=== PATIENT | male | born 1940 | race Caucasian/White ===

== ENCOUNTER 2018-12-29 00:52 | Emergency (ER) | payer MEDICARE, OTHER ==
[~2018-12-29] VITALS: Ht 193 cm; Wt 142.7 kg
[~2018-12-29 00:52] MED LIST: NO HOME MEDS
--- NOTE | 2018-12-29 01:45 | NUR ---
Pt requests to be given time to urinate instead of straight cath and reprots he has to urinate frequently. at bedside. hr 52, otherwise vss. Denies any pain
[2018-12-29 02:02] LABS: BASOPHILS # (AUTO) 0.1 X10'3 (0-0.2); BASOPHILS % (AUTO) 0.7 % (0-1); EOSINOPHILS # (AUTO) 0.1 X10'3 (0-0.9); EOSINOPHILS % (AUTO) 1.7 % (0-6); HEMATOCRIT 38.9 % (42.0-52.0); HEMOGLOBIN 12.9 g/dl (14.0-17.9); LYMPHOCYTES # (AUTO) 1.1 X10'3 (1.1-4.8); LYMPHOCYTES % (AUTO) 14.7 % (21-51); MEAN CORPUSCULAR HEMOGLOBIN 28.6 PG (27.0-31.0); MEAN CORPUSCULAR HGB CONC 33.3 g/dL (33.0-36.5); MEAN CORPUSCULAR VOLUME 85.8 FL (78-98); MEAN PLATELET VOLUME 8.5 FL (7.4-10.4); MONOCYTES # (AUTO) 0.8 X10'3 (0-0.9); MONOCYTES % (AUTO) 11.6 % (2-12); NEUTROPHILS # (AUTO) 5.2 X10'3 (1.8-7.7); NEUTROPHILS % (AUTO) 71.3 % (42-75); PLATELET COUNT 213 X10'3 (140-440); RED BLOOD COUNT 4.53 X10'6 (4.70-6.10); RED CELL DISTRIBUTION WIDTH 15.1 % (11.5-14.5); WHITE BLOOD COUNT 7.3 X10'3 (4.5-11.0)
[2018-12-29 02:11] LABS: ALANINE AMINOTRANSFERASE 23 U/L (12-78); ALBUMIN 3.1 G/DL (3.4-5.0); ALBUMIN/GLOBULIN RATIO 0.9 (1.1-1.5); ALKALINE PHOSPHATASE 81 IU/L (46-116); ANION GAP 9 (8-16); ASPARTATE AMINO TRANSFERASE 16 U/L (10-37); BILIRUBIN,TOTAL 0.3 MG/DL (0.1-1.0); BLOOD UREA NITROGEN 27 MG/DL (7-18); BUN/CREATININE RATIO 24.5 (5.4-32.0); CALCIUM 8.7 MG/DL (8.5-10.1); CHLORIDE 107 MMOL/L (99-107); GLUCOSE 121 MG/DL (70-104); POTASSIUM 3.7 MMOL/L (3.5-5.1); SODIUM 139 MMOL/L (135-145); TOTAL CARBON DIOXIDE 23.4 MMOL/L (24-32); TOTAL PROTEIN 6.5 G/DL (6.4-8.2); eGFR 64 ML/MIN
[2018-12-29 02:31] LABS: MAGNESIUM 2.1 MG/DL (1.5-2.4)
[2018-12-29 02:41] LABS: CLARITY,URINE CLEAR (Clear); COLOR,URINE YELLOW (Yellow); GLUCOSE, URINE NEGATIVE (Neg); KETONES,URINE NEGATIVE (Neg); LEUKOCYTE ESTERASE ,URINE NEGATIVE (Neg); NITRITES, URINE NEGATIVE (Neg); OCCULT BLOOD,URINE NEGATIVE (Neg); PROTEIN,URINE NEGATIVE (Neg); UROBILINOGEN,URINE 0.2 E.U/dL (0.2-1.0)
[2018-12-29 02:42] LABS: UA COLLECTION TYPE CLN CATCH MIDSTREAM
[2018-12-29] MEDS ORDERED: normal saline 1000ML IV soln IVB ONE (03:55)
[2018-12-29 05:45] VITALS: BP 167/101
--- NOTE | 2018-12-29 06:02 | NUR ---
Dr. Hernández talking with Pt and his .
== END 2018-12-29 06:20 | disposition home or self-care (01) ==
LOC: ER 00:53
DX: R53.1 Weakness (principal); E86.0 Dehydration; I25.10 Atherosclerotic heart disease of native coronary artery without angina pectoris; G89.29 Other chronic pain; G62.9 Polyneuropathy, unspecified; Z95.5 Presence of coronary angioplasty implant and graft; Z98.890 Other specified postprocedural states
CPT/HCPCS: 36415; 71045; 80053; 81003; 83735; 83880; 84484; 85025; 85610; 93005; 96360; 99284; J7030

== ENCOUNTER 2019-02-26 09:58 | Outpatient (CLI) | payer MEDICARE, OTHER | END 2019-02-26 23:59 | disposition home or self-care (01) | LOC: CARD DIAG 09:58 | PROVIDERS: ATTEND Internal Medicine Cardiovascular Disease | DX: R42 Dizziness and giddiness (principal); Z87.891 Personal history of nicotine dependence | CPT/HCPCS: 93660 ==

== ENCOUNTER 2019-05-30 07:53 | Day surgery (SDC) | payer MEDICARE, OTHER ==
[~2019-05-30] VITALS: Ht 193 cm; Wt 150.6 kg
[2019-05-30] VITALS (22 sets, daily range): BP systolic 99–170; BP diastolic 42–86
[2019-05-30] MEDS ORDERED: normal saline 1000ml 1,000 ML IV PRN (08:25)
[2019-05-30] MEDS ORDERED: HYDR-4353 PO (08:45)
[2019-05-30] MEDS ORDERED: CYAN-51 PO (08:45)
[2019-05-30] MEDS ORDERED: FURO-150 PO (08:45)
[2019-05-30] MEDS ORDERED: ASCO500C15 PO (08:45)
[2019-05-30] MEDS ORDERED: ASPI-1264 PO (08:45)
[2019-05-30 09:23] LABS: ALBUMIN 3.8 G/DL (3.4-5.0); ANION GAP 6 (8-16); BASOPHILS % (AUTO) 0.5 % (0-1); BLOOD UREA NITROGEN 21 MG/DL (7-18); BUN/CREATININE RATIO 17.8 (5.4-32.0); CALCIUM 9.2 MG/DL (8.5-10.1); CHLORIDE 106 MMOL/L (99-107); CREATININE 1.18 MG/DL (0.60-1.10); EOSINOPHILS # (AUTO) 0.2 X10'3 (0-0.9); EOSINOPHILS % (AUTO) 2.3 % (0-6); GLUCOSE 96 MG/DL (70-104); HEMATOCRIT 41.1 % (42.0-52.0); HEMOGLOBIN 13.7 g/dl (14.0-17.9); LYMPHOCYTES # (AUTO) 1.1 X10'3 (1.1-4.8); LYMPHOCYTES % (AUTO) 16.5 % (21-51); MEAN CORPUSCULAR HEMOGLOBIN 28.9 PG (27.0-31.0); MEAN CORPUSCULAR HGB CONC 33.5 g/dL (33.0-36.5); MEAN CORPUSCULAR VOLUME 86.4 FL (78-98); MEAN PLATELET VOLUME 8.7 FL (7.4-10.4); MONOCYTES # (AUTO) 0.8 X10'3 (0-0.9); MONOCYTES % (AUTO) 11.9 % (2-12); NEUTROPHILS # (AUTO) 4.6 X10'3 (1.8-7.7); NEUTROPHILS % (AUTO) 68.8 % (42-75); PLATELET COUNT 235 X10'3 (140-440); POTASSIUM 4.2 MMOL/L (3.5-5.1); RED BLOOD COUNT 4.75 X10'6 (4.70-6.10); RED CELL DISTRIBUTION WIDTH 14.7 % (11.5-14.5); SODIUM 141 MMOL/L (135-145); TOTAL CARBON DIOXIDE 29.4 MMOL/L (24-32); WHITE BLOOD COUNT 6.7 X10'3 (4.5-11.0); eGFR 59 ML/MIN
[2019-05-30] MEDS ORDERED: fentaNYL/PF 50MCG/1 ML 2ML syringe IV PRN (11:05)
[2019-05-30] MEDS ORDERED: LIDOcaine 1% 30ml preserv. free vial SQ ONE (11:05)
[2019-05-30] MEDS ORDERED: midazolam 2 mg/2 ml injection IV PRN (11:05)
[2019-05-30] MEDS ORDERED: fentaNYL/PF 50MCG/1 ML 2ML syringe ONE ×2 (11:06→12:09)
[2019-05-30] MEDS ORDERED: midazolam 2 mg/2 ml injection ONE (11:06)
[2019-05-30] MEDS ORDERED: LIDOcaine 1%/PF 5ML 10 MG/ML VIAL ONE (12:00)
[2019-05-30] MEDS ORDERED: gelatin sponge, absorbable (Gelfoam 12-7MM) sponge TP ONE (12:01)
== END 2019-05-30 15:55 | disposition home or self-care (01) ==
LOC: SSTAY O 07:53
PROVIDERS: ATTEND Radiology Vascular & Interventional Radiology
DX: R91.8 Other nonspecific abnormal finding of lung field (principal); C85.12 Unspecified B-cell lymphoma, intrathoracic lymph nodes; Z79.899 Other long term (current) drug therapy; Z79.82 Long term (current) use of aspirin
CPT/HCPCS: 32405; 36415; 71045; 77012; 80048; 85025; 85610; 99152; 99153; J2250; J3010; J7030

== ENCOUNTER 2019-05-30 22:37 | Inpatient (IN) | payer MEDICARE, OTHER ==
[~2019-05-30] VITALS: Ht 193 cm; Wt 151.8 kg
[~2019-05-30 22:37] MED LIST changes: +ASCO500C15 PO; +ASPI-1264 PO; +CYAN-51 PO; +FURO-150 PO; +HYDR-4353 PO
[2019-05-30 23:18] LABS: BASOPHILS # (AUTO) 0.1 X10'3 (0-0.2); BASOPHILS % (AUTO) 0.3 % (0-1); EOSINOPHILS # (AUTO) 0.1 X10'3 (0-0.9); EOSINOPHILS % (AUTO) 0.6 % (0-6); HEMATOCRIT 37.9 % (42.0-52.0); HEMOGLOBIN 12.5 g/dl (14.0-17.9); LYMPHOCYTES # (AUTO) 1.5 X10'3 (1.1-4.8); LYMPHOCYTES % (AUTO) 9.9 % (21-51); MEAN CORPUSCULAR HEMOGLOBIN 28.7 PG (27.0-31.0); MEAN CORPUSCULAR HGB CONC 33.1 g/dL (33.0-36.5); MEAN CORPUSCULAR VOLUME 86.6 FL (78-98); MEAN PLATELET VOLUME 8.5 FL (7.4-10.4); MONOCYTES # (AUTO) 1.4 X10'3 (0-0.9); MONOCYTES % (AUTO) 8.9 % (2-12); NEUTROPHILS # (AUTO) 12.4 X10'3 (1.8-7.7); NEUTROPHILS % (AUTO) 80.3 % (42-75); PLATELET COUNT 238 X10'3 (140-440); RED BLOOD COUNT 4.37 X10'6 (4.70-6.10); RED CELL DISTRIBUTION WIDTH 14.9 % (11.5-14.5); WHITE BLOOD COUNT 15.5 X10'3 (4.5-11.0)
[2019-05-30 23:25] LABS: ALANINE AMINOTRANSFERASE 24 U/L (12-78); ALBUMIN 3.6 G/DL (3.4-5.0); ALKALINE PHOSPHATASE 97 IU/L (46-116); ANION GAP 8 (8-16); ASPARTATE AMINO TRANSFERASE 16 U/L (10-37); BILIRUBIN,TOTAL 0.3 MG/DL (0.1-1.0); BLOOD UREA NITROGEN 26 MG/DL (7-18); BUN/CREATININE RATIO 19.4 (5.4-32.0); CALCIUM 8.6 MG/DL (8.5-10.1); CHLORIDE 105 MMOL/L (99-107); CREATININE 1.34 MG/DL (0.60-1.10); GLUCOSE 126 MG/DL (70-104); POTASSIUM 3.9 MMOL/L (3.5-5.1); SODIUM 139 MMOL/L (135-145); TOTAL CARBON DIOXIDE 26.5 MMOL/L (24-32); TOTAL PROTEIN 7.2 G/DL (6.4-8.2); eGFR 51 ML/MIN
[2019-05-30 23:31] LABS: MAGNESIUM 2.1 MG/DL (1.5-2.4)
[2019-05-30] MEDS ORDERED: morphine 4 MG/ML inj SYRINge IV ONE (23:35)
[2019-05-30] MEDS ORDERED: ondansetron/PF 4mg/2ml inj IV ONE (23:35)
[2019-05-31] VITALS (9 sets, daily range): BP systolic 125–162; BP diastolic 51–92
[2019-05-31] MEDS ORDERED: morphine 4 MG/ML inj SYRINge IV ONE ×2 (01:15→23:25)
[2019-05-31] MEDS ORDERED: HYDROcodone/acetaminophen 5mg/325mg tablet PO PRN (01:20)
[2019-05-31] MEDS ORDERED: mag hydrox/Alum hydrox/simeth 30ml oral suspension PO PRN (01:20)
[2019-05-31] MEDS: normal saline 1000ml 1,000 ML IV SCH ×2 (01:20→14:40)
[2019-05-31] MEDS ORDERED: ondansetron/PF 4mg/2ml inj IV PRN (01:20)
[2019-05-31] MEDS ORDERED: morphine 2 MG/ML inj. syringe IV PRN ×2 (01:20)
[2019-05-31] MEDS ORDERED: magnesium hydroxide 30ml (MOM) UD suspension PO PRN (01:20)
[2019-05-31] MEDS ORDERED: acetaminophen 325mg tablet PO PRN ×2 (01:20)
[2019-05-31] MEDS ORDERED: LORazepam 2 mg/ml vial IV ONE ×3 (02:20→23:25)
[2019-05-31 02:38] LABS: CLARITY,URINE CLEAR (Clear); COLOR,URINE YELLOW (Yellow); GLUCOSE, URINE NEGATIVE (Neg); KETONES,URINE NEGATIVE (Neg); LEUKOCYTE ESTERASE ,URINE NEGATIVE (Neg); NITRITES, URINE NEGATIVE (Neg); OCCULT BLOOD,URINE NEGATIVE (Neg); PROTEIN,URINE TRACE mg/dl (Neg); UROBILINOGEN,URINE 0.2 E.U/dL (0.2-1.0)
[2019-05-31 02:40] LABS: UA COLLECTION TYPE URINAL
[2019-05-31 02:42] LABS: BACTERIA,URINE NONE SEEN /HPF (Neg); MUCUS STRANDS FEW /LPF (Neg); RBC,URINE 0-2 /HPF (0-2); SQUAMOUS EPITHELIAL CELL,UR NONE SEEN /LPF (FEW); WBC,URINE 0-4 /HPF (0-4)
--- NOTE | 2019-05-31 02:44 | NUR ---
per ed md lechuga request pt to stay in er for monitoring until ir available to place chest tube due to potential for serious decompensation and immediate need for chest tube.
--- NOTE | 2019-05-31 06:00 | NUR ---
Patient in room PCU 3014. I have received report from Kiera, ED RN and had the opportunity to ask questions and assume patient care. Informed that the current plan is for patient to stay in ED until they have ruled out need for emergent chest tube. Likely he will go to IR before coming to unit.
--- NOTE | 2019-05-31 08:00 | NUR ---
RN informed that patient had been on unit for an hour, nurse was never informed of patient's arrival and was unaware of the change in plan. vital signs obtained and VSS, patient moderately distressed with pain and reports shortness of breath. at bedside. Will get pain medication as prescribed and continue to monitor.
[2019-05-31] MEDS ORDERED: fentaNYL/PF 50MCG/1 ML 2ML syringe ONE ×2 (10:45→10:55)
--- NOTE | 2019-05-31 11:00 | NUR ---
Patient arrived back on unit following chest tube insertion. 400ml dark red blood in chest tube, chest tube set to suction at 20 per order, patient reports pain but otherwise VSS. Will continue to monitor.
--- NOTE | 2019-05-31 11:47 | NUR ---
PAGER ID: [phone] MESSAGE: LENCHO Rutherford, ext [phone], [phone], betito pt c/o new onset sharp/stabbing pain in his mid back post chest tube insertion
--- NOTE | 2019-05-31 12:16 | NUR ---
LENCHO Rutherford in communication with IR regarding patient status after procedure, pt restless in bed with c/o pain to middle of back, pleuritic in nature, without other identifiable causative factors. Chest tube output noted at 400ml from IR procedure when returned to floor and report handed off to attending RN, since then has had approx 125ml more output. PCU Staff at bedside. Vitals appropriate for patient and sats at 96-99 percent on 2LNC. Pt oriented, able to explain nature of pain and verbalized understanding of risk for falls and position of comfort by this RN. Sangeeta MUSA in communication via phone with MD Lerma and assisting patient at bedside. Anuja notified of patient condition, Anuja deferred ongoing orders to Florentin at this time regarding pain control. Charge nurse for unit at bedside. Angio team to follow as needed, RN aware and given information for contact in department. IR team to follow.
[2019-05-31] MEDS ORDERED: ketorolac tromethamine 15mg/ml inj. IM STA (12:19)
--- NOTE | 2019-05-31 12:19 | NUR ---
PAGER ID: [phone] MESSAGE: [id number] KITAJosé Luis LIZARRAGA @ BEDSIDE. CAN WE GIVE PT 15MG OF TORADOL?? XRAY BEING TAKEN. ESTELLA MORA [phone] Addendum: 05/31/19 at 1220 by Estella Salazar RN Amended: Links added.
[2019-05-31 13:25] LABS: BASOPHILS # (AUTO) 0.1 X10'3 (0-0.2); BASOPHILS % (AUTO) 0.5 % (0-1); EOSINOPHILS % (AUTO) 0.2 % (0-6); HEMATOCRIT 33.4 % (42.0-52.0); HEMOGLOBIN 11.2 g/dl (14.0-17.9); LYMPHOCYTES # (AUTO) 0.6 X10'3 (1.1-4.8); LYMPHOCYTES % (AUTO) 5.3 % (21-51); MEAN CORPUSCULAR HGB CONC 33.5 g/dL (33.0-36.5); MEAN CORPUSCULAR VOLUME 86.5 FL (78-98); MEAN PLATELET VOLUME 8.5 FL (7.4-10.4); MONOCYTES # (AUTO) 1.5 X10'3 (0-0.9); MONOCYTES % (AUTO) 13.1 % (2-12); NEUTROPHILS % (AUTO) 80.9 % (42-75); PLATELET COUNT 207 X10'3 (140-440); RED BLOOD COUNT 3.86 X10'6 (4.70-6.10); RED CELL DISTRIBUTION WIDTH 14.7 % (11.5-14.5); WHITE BLOOD COUNT 11.2 X10'3 (4.5-11.0)
[2019-05-31] MEDS: HYDROcodone/acetaminophen 10/325mg tab PO PRN (16:13)
--- NOTE | 2019-05-31 16:42 | NUR ---
PAGER ID: [phone] MESSAGE: LENCHO Rutherford, ext [phone], [phone], urine output this shift has only been 40mls, bladder scan showed only 170mls in bladder, patient has 3 + pitting edema in BLE and now arms are having increasing non-pitting edema.
[2019-05-31] MEDS ORDERED: furosemide 40mg/4ml inj IV ONE (16:45)
--- NOTE | 2019-05-31 17:30 | NUR ---
Patient jumped out of bed to go to bathroom with urinary urgency and in the process may have partiallly dislodged his pigtail catheter, increased drainage on dressing, placed xeroform and foam tape over site, attempted to call IR, but no answer, Dr. Lerma was paged, stat CXR ordered
--- NOTE | 2019-05-31 17:40 | NUR ---
promotional table spacer PAGER ID: [phone] MESSAGE: LENCHO Rutherford, ext [phone], [phone], betito, patient did not fall, he got up to bathroom and may have partially dislodged his pigtail catheter, foam tape and xeroform applied, tried to call IR but no answer
--- NOTE | 2019-05-31 18:26 | NUR ---
Problems reprioritized. Patient report given, questions answered & plan of care reviewed with LENCHO Gonzalez.
[2019-05-31] MEDS: furosemide 40mg/4ml inj IV SCH (19:28)
--- NOTE | 2019-05-31 21:00 | NUR ---
CHEST XR AND CLAMPED CHEST TUBE MD Talbert made aware about clamped chest tube and pending 1734 chest x-ray. Will continue to monitor.
[2019-06-01 02:00] VITALS: BP 139/60
--- NOTE | 2019-06-01 04:00 | NUR ---
COMPULSIVE AND CONFUSED BEHAVIOR Patient has been exceedingly impulsive, confused, and threatening to be combative on my shift. 2137 patient was given morphine was relieved from pain for a short while but had a lot of anxiety from needing to stand up and pee and having a lot of hesitancy with it; threatening to hit staff as well when help wasn't able to make him comfortable in bed or chair started soon after. Anxiety increased, MD Talbert notified, Ativan was given 2326; Patient was able to finally rest and occasionally demand to stand up to use the urinal or bedside commode. 0 MD Talbert was again notified when the patient began to escalate, Zyprexa and Morphine was given and Singh catheter was placed by order. Patient soon was able to be calm, relaxed and comfortable. Will continue to monitor.
[2019-06-01] MEDS ORDERED: OLANZapine **IM** 10 mg inj. IM ONE (04:05)
--- NOTE | 2019-06-01 05:00 | NUR ---
CHEST TUBE Tube reinforced, no output on my shift.
[2019-06-01 06:00] VITALS: BP 145/59
[2019-06-01 06:25] LABS: ALBUMIN 3.1 G/DL (3.4-5.0); ANION GAP 7 (8-16); BLOOD UREA NITROGEN 32 MG/DL (7-18); BUN/CREATININE RATIO 23.2 (5.4-32.0); CALCIUM 8.4 MG/DL (8.5-10.1); CHLORIDE 105 MMOL/L (99-107); CREATININE 1.38 MG/DL (0.60-1.10); GLUCOSE 121 MG/DL (70-104); POTASSIUM 3.9 MMOL/L (3.5-5.1); SODIUM 139 MMOL/L (135-145); TOTAL CARBON DIOXIDE 27.3 MMOL/L (24-32); eGFR 49 ML/MIN
[2019-06-01 06:27] LABS: BASOPHILS % (AUTO) 0.4 % (0-1); EOSINOPHILS # (AUTO) 0.1 X10'3 (0-0.9); EOSINOPHILS % (AUTO) 1.5 % (0-6); HEMATOCRIT 33.9 % (42.0-52.0); HEMOGLOBIN 11.5 g/dl (14.0-17.9); LYMPHOCYTES # (AUTO) 0.9 X10'3 (1.1-4.8); LYMPHOCYTES % (AUTO) 8.8 % (21-51); MEAN CORPUSCULAR HEMOGLOBIN 29.2 PG (27.0-31.0); MEAN CORPUSCULAR VOLUME 85.8 FL (78-98); MEAN PLATELET VOLUME 8.8 FL (7.4-10.4); MONOCYTES # (AUTO) 1.4 X10'3 (0-0.9); MONOCYTES % (AUTO) 13.6 % (2-12); NEUTROPHILS # (AUTO) 7.5 X10'3 (1.8-7.7); NEUTROPHILS % (AUTO) 75.7 % (42-75); PLATELET COUNT 208 X10'3 (140-440); RED BLOOD COUNT 3.95 X10'6 (4.70-6.10); RED CELL DISTRIBUTION WIDTH 14.5 % (11.5-14.5)
--- NOTE | 2019-06-01 06:34 | NUR ---
Problems reprioritized. Patient report given, questions answered & plan of care reviewed with Praful MUSA.
--- NOTE | 2019-06-01 07:02 | NUR ---
Patient got up from chair and lowered himself to one knee. Patient has done this before. MD was notified and dry house operator. Patient already has sitter. No injuries noted. Patient re-educated on why he can't get up with contact assistance.
[2019-06-01] MEDS: furosemide 40mg/4ml inj IV SCH ×2 (07:07→19:06)
[2019-06-01] MEDS ORDERED: LORazepam 2 mg/ml vial IV PRN (08:15)
[2019-06-01] MEDS ORDERED: haloperidol lactate 5mg/ml inj IM PRN (08:15)
[2019-06-01 11:00] VITALS: BP 119/54
--- NOTE | 2019-06-01 12:10 | NUR ---
ORDER TO REMOVE CT FROM DR DE LEÓN RECEIVED. CT NOT WITHIN THE PLURAL CAVITY ANY LONGER CONFIRMED BY XRAY. PT TOLERATED PROCEDURE WELL. CT PIG TAIL REMOVED . ENTRY SITE COVERED WITH VASELINE GAUZE, / AND RUBBER TAPE. PT NOW EATING LUNCH. FAMILY AT BEDSIDE. Addendum: 06/01/19 at 1245 by Estella Salazar RN Amended: Links added.
[2019-06-01 15:00] VITALS: BP 139/62
[2019-06-01 18:00] VITALS: BP 128/56
--- NOTE | 2019-06-01 18:00 | NUR ---
Patient in room PCU 3014. I have received report from Praful MUSA and had the opportunity to ask questions and assume patient care.
--- NOTE | 2019-06-01 18:10 | NUR ---
Problems reprioritized. Patient report given, questions answered & plan of care reviewed with LENCHO Gonzalez.
[2019-06-01] MEDS: HYDROcodone/acetaminophen 10/325mg tab PO PRN (19:06)
[2019-06-01 22:00] VITALS: BP 134/55
[2019-06-02] MEDS: HYDROcodone/acetaminophen 10/325mg tab PO PRN ×2 (00:30→21:21)
[2019-06-02 02:00] VITALS: BP 130/59
[2019-06-02 05:58] LABS: BASOPHILS % (AUTO) 0.3 % (0-1); EOSINOPHILS # (AUTO) 0.3 X10'3 (0-0.9); EOSINOPHILS % (AUTO) 3.2 % (0-6); HEMATOCRIT 35.1 % (42.0-52.0); LYMPHOCYTES # (AUTO) 1.2 X10'3 (1.1-4.8); LYMPHOCYTES % (AUTO) 12.6 % (21-51); MEAN CORPUSCULAR HEMOGLOBIN 29.2 PG (27.0-31.0); MEAN CORPUSCULAR HGB CONC 34.1 g/dL (33.0-36.5); MEAN CORPUSCULAR VOLUME 85.7 FL (78-98); MEAN PLATELET VOLUME 8.4 FL (7.4-10.4); MONOCYTES # (AUTO) 1.4 X10'3 (0-0.9); NEUTROPHILS # (AUTO) 6.3 X10'3 (1.8-7.7); NEUTROPHILS % (AUTO) 68.9 % (42-75); PLATELET COUNT 221 X10'3 (140-440); RED BLOOD COUNT 4.09 X10'6 (4.70-6.10); RED CELL DISTRIBUTION WIDTH 14.3 % (11.5-14.5); WHITE BLOOD COUNT 9.2 X10'3 (4.5-11.0)
[2019-06-02 06:00] VITALS: BP 151/67
[2019-06-02 06:20] LABS: ANION GAP 8 (8-16); BLOOD UREA NITROGEN 34 MG/DL (7-18); CALCIUM 8.4 MG/DL (8.5-10.1); CHLORIDE 102 MMOL/L (99-107); CREATININE 1.36 MG/DL (0.60-1.10); GLUCOSE 111 MG/DL (70-104); POTASSIUM 3.5 MMOL/L (3.5-5.1); SODIUM 137 MMOL/L (135-145); TOTAL CARBON DIOXIDE 26.8 MMOL/L (24-32); eGFR 50 ML/MIN
--- NOTE | 2019-06-02 06:57 | NUR ---
Problems reprioritized. Patient report given, questions answered & plan of care reviewed with Praful MUSA.
[2019-06-02] MEDS: furosemide 40mg/4ml inj IV SCH ×2 (08:04→19:04)
[2019-06-02 11:00] VITALS: BP 143/67
[2019-06-02 12:43] LABS: CLARITY,URINE SLIGHTLY CLOUDY (Clear); COLOR,URINE YELLOW (Yellow); GLUCOSE, URINE NEGATIVE (Neg); KETONES,URINE NEGATIVE (Neg); LEUKOCYTE ESTERASE ,URINE SMALL (Neg); NITRITES, URINE NEGATIVE (Neg); OCCULT BLOOD,URINE LARGE (Neg); PROTEIN,URINE 100 mg/dl (Neg); UROBILINOGEN,URINE 0.2 E.U/dL (0.2-1.0)
[2019-06-02 12:45] LABS: UA COLLECTION TYPE FOLEY CATH
--- NOTE | 2019-06-02 12:45 | NUR ---
PAGER ID: [phone] MESSAGE: [id number] Jean-Pierre Lundy: Walked 300 with FWW with about 6 stops. May need home PT and/or walker with seat. Gait is slightly weak and is at some risk for a fall I believe. UA pending per Dr Cota. I'll HAMZAH shi. LENCHO Basilio Ext [phone]
[2019-06-02 12:59] LABS: RBC,URINE TNTC /HPF (0-2); SQUAMOUS EPITHELIAL CELL,UR NONE SEEN /LPF (FEW)
[2019-06-02 13:01] LABS: WBC,URINE 20-30 /HPF (0-4)
[2019-06-02 13:02] LABS: BACTERIA,URINE 1+ /HPF (Neg)
[2019-06-02 15:00] VITALS: BP 141/59
[2019-06-02] MEDS: CefTRIAXone 2gm/D5W 50ml 50 ML IV SCH (15:32)
--- NOTE | 2019-06-02 18:15 | NUR ---
Problems reprioritized. Patient report given, questions answered & plan of care reviewed with LENCHO Gonzalez.
--- NOTE | 2019-06-02 18:51 | NUR ---
PAGER ID: [phone] MESSAGE: [phone] Jean-Pierre Lundy: Singh catheter discontinued, patient has prostate issues, patient stated "took some kind of medication at home and stopped taking it because it made him feel funny". Would you like to order something? antoinette MUSA 0206
[2019-06-02 19:00] VITALS: BP 130/54
[2019-06-02] MEDS ORDERED: tamsulosin 0.4mg capsule PO SCH (21:00)
[2019-06-02] MEDS: finasteride 5mg tablet PO SCH (21:20)
[2019-06-02 23:00] VITALS: BP 124/59
[2019-06-03] MEDS: HYDROcodone/acetaminophen 10/325mg tab PO PRN (01:20)
--- NOTE | 2019-06-03 01:56 | NUR ---
Patient in room U 3014. I have received report from Praful MUSA and had the opportunity to ask questions and assume patient care. Addendum: 06/03/19 at 0157 by Lisa Greer RN Time 06/02/19 1800
[2019-06-03 03:00] VITALS: BP 149/64
[2019-06-03 05:35] LABS: BASOPHILS % (AUTO) 0.5 % (0-1); EOSINOPHILS # (AUTO) 0.3 X10'3 (0-0.9); EOSINOPHILS % (AUTO) 2.8 % (0-6); HEMATOCRIT 35.5 % (42.0-52.0); HEMOGLOBIN 12.2 g/dl (14.0-17.9); LYMPHOCYTES # (AUTO) 1.2 X10'3 (1.1-4.8); LYMPHOCYTES % (AUTO) 12.3 % (21-51); MEAN CORPUSCULAR HEMOGLOBIN 29.3 PG (27.0-31.0); MEAN CORPUSCULAR HGB CONC 34.3 g/dL (33.0-36.5); MEAN CORPUSCULAR VOLUME 85.2 FL (78-98); MEAN PLATELET VOLUME 8.7 FL (7.4-10.4); MONOCYTES # (AUTO) 1.3 X10'3 (0-0.9); MONOCYTES % (AUTO) 13.8 % (2-12); NEUTROPHILS # (AUTO) 6.7 X10'3 (1.8-7.7); NEUTROPHILS % (AUTO) 70.6 % (42-75); PLATELET COUNT 223 X10'3 (140-440); RED BLOOD COUNT 4.17 X10'6 (4.70-6.10); WHITE BLOOD COUNT 9.4 X10'3 (4.5-11.0)
[2019-06-03 05:44] LABS: ANION GAP 11 (8-16); BLOOD UREA NITROGEN 35 MG/DL (7-18); BUN/CREATININE RATIO 26.9 (5.4-32.0); CALCIUM 8.6 MG/DL (8.5-10.1); CHLORIDE 100 MMOL/L (99-107); GLUCOSE 119 MG/DL (70-104); POTASSIUM 3.3 MMOL/L (3.5-5.1); SODIUM 136 MMOL/L (135-145); TOTAL CARBON DIOXIDE 24.8 MMOL/L (24-32); eGFR 53 ML/MIN
--- NOTE | 2019-06-03 06:16 | NUR ---
Problems reprioritized. Patient report given, questions answered & plan of care reviewed with Marilee MUSA and Kiera MUSA.
--- NOTE | 2019-06-03 06:27 | NUR ---
Patient in room PCU 3014. I have received report from Lisa MUSA and had the opportunity to ask questions and assume patient care. Patient asleep in chair. Sitter bedside.
--- NOTE | 2019-06-03 06:27 | NUR ---
Patient in room U 3014. I have received report from LENCHO Treadwell and had the opportunity to ask questions and assume patient care. Patient sleeping comfortably in chair. Sitter present.
[2019-06-03 07:00] VITALS: BP 153/74
[2019-06-03] MEDS: furosemide 40mg/4ml inj IV SCH (08:08)
[2019-06-03] MEDS: CefTRIAXone 2gm/D5W 50ml 50 ML IV SCH (08:09)
[2019-06-03] MEDS: finasteride 5mg tablet PO SCH (08:10)
[2019-06-03 11:00] VITALS: BP 138/62
[2019-06-03 15:00] VITALS: BP 130/59
--- NOTE | 2019-06-03 15:17 | NUR ---
Paged Dr. Luis regarding discharge plans. PAGER ID: [phone] MESSAGE: Jean-Pierre Lundy. Rm. [phone]. Is patient discharging today? Patient is inquiring about status. Thank you. Kiera MUSA x [phone]
[2019-06-03] MEDS ORDERED: FINA5TAB11 PO (15:25)
[2019-06-03] MEDS ORDERED: FURO-150 PO (15:25)
[2019-06-03] MEDS ORDERED: CEFD300C3 PO (15:25)
--- NOTE | 2019-06-03 16:15 | NUR ---
Patient is stable for discharge per MD orders. All discharge instructions reviewed with patient and all questions answered. New prescriptions call into [facility] on [facility]. Patient will follow up with primary care provider. PIV discontinued. quality assurance monitor chassis discontinued. Belongings collected and sent with patient. Patient leaving by private vehicle. Wheeled to lobby.
--- NOTE | 2019-06-03 16:38 | NUR ---
[place] Medication Administration: For this medication-pass time frame, all medication were reviewed, dispensed, administered and documented per hospital policy by LENCHO Qureshi. Orientee documentation: I have reviewed and agree with all interventions, assessments performed and documented by LENCHO Qureshi.
== END 2019-06-03 16:15 | disposition home health service (06) | DRG 199 ==
LOC: ER 22:38 → ED HOLD 05-31 01:20 → PCU 3S 05-31 07:00
PROVIDERS: ADMIT Hospitalist; ATTEND Family Medicine
PROC: 0W9B30Z Drainage of Left Pleural Cavity with Drainage Device, Percutaneous Approach (ICD-10-PCS; principal; 2019-05-31)
DX: J95.811 Postprocedural pneumothorax (principal); J96.01 Acute respiratory failure with hypoxia; J94.2 Hemothorax; J98.11 Atelectasis; N39.0 Urinary tract infection, site not specified; Z68.41 Body mass index [BMI] 40.0-44.9, adult; E66.01 Morbid (severe) obesity due to excess calories; I25.10 Atherosclerotic heart disease of native coronary artery without angina pectoris; I11.0 Hypertensive heart disease with heart failure; I50.9 Heart failure, unspecified; N40.1 Benign prostatic hyperplasia with lower urinary tract symptoms; R33.8 Other retention of urine; G47.33 Obstructive sleep apnea (adult) (pediatric); G89.29 Other chronic pain; Z85.72 Personal history of non-Hodgkin lymphomas; Z95.5 Presence of coronary angioplasty implant and graft
CPT/HCPCS: 32557; 36415; 71045; 71046; 71250; 77012; 80048; 80053; 81001; 83735; 83880; 84484; 85025; 85610; 87081; 87088; 88305; 88341; 88342; 88360; 93005; 96374; 96375; 97116; 97161; 97530; 99285; G0378; J0696; J1885; J1940; J2060; J2270; J2405; J3010; J3490; J7030

== ENCOUNTER 2021-07-07 04:18 | Inpatient (IN) | payer MEDICARE ==
[~2021-07-07] VITALS: Ht 193 cm; Wt 127.0 kg
[2021-07-07] VITALS (8 sets, daily range): BP systolic 153–187; BP diastolic 62–86
[~2021-07-07 04:18] MED LIST changes: -ASCO500C15 PO; +ASCO500C18 PO; +FINA5TAB11 PO; -NO HOME MEDS
[2021-07-07 05:30] LABS: EOSINOPHILS % (AUTO) 0.3 % (0-6); HEMOGLOBIN 12.9 g/dl (14.0-17.9); LYMPHOCYTES # (AUTO) 0.7 X10'3 (1.1-4.8); MONOCYTES # (AUTO) 1.1 X10'3 (0-0.9); NEUTROPHILS # (AUTO) 6.5 X10'3 (1.8-7.7); WHITE BLOOD COUNT 8.4 X10'3 (4.5-11.0)
[2021-07-07 05:31] LABS: BASOPHILS % (AUTO) 0.4 % (0-1); HEMATOCRIT 38.6 % (42.0-52.0); LYMPHOCYTES % (AUTO) 8.4 % (21-51); MEAN CORPUSCULAR HEMOGLOBIN 27.7 PG (27.0-31.0); MEAN CORPUSCULAR HGB CONC 33.6 g/dL (33.0-36.5); MEAN CORPUSCULAR VOLUME 82.4 FL (78-98); MEAN PLATELET VOLUME 8.5 FL (7.4-10.4); MONOCYTES % (AUTO) 13.3 % (2-12); NEUTROPHILS % (AUTO) 77.6 % (42-75); PLATELET COUNT 195 X10'3 (140-440); RED BLOOD COUNT 4.68 X10'6 (4.70-6.10); RED CELL DISTRIBUTION WIDTH 15.2 % (11.5-14.5)
[2021-07-07 05:43] LABS: ALANINE AMINOTRANSFERASE 25 U/L (12-78); ALBUMIN 3.6 G/DL (3.4-5.0); ALBUMIN/GLOBULIN RATIO 0.9 (1.1-1.5); ALKALINE PHOSPHATASE 87 IU/L (46-116); ANION GAP 10 (8-16); ASPARTATE AMINO TRANSFERASE 29 U/L (10-37); BILIRUBIN,TOTAL 0.6 MG/DL (0.1-1.0); BLOOD UREA NITROGEN 30 MG/DL (7-18); BUN/CREATININE RATIO 22.2 (5.4-32.0); CALCIUM 9.1 MG/DL (8.5-10.1); CHLORIDE 103 MMOL/L (99-107); CREATININE 1.35 MG/DL (0.60-1.10); GLUCOSE 121 MG/DL (70-104); LIPASE 64 U/L (73-393); POTASSIUM 3.2 MMOL/L (3.5-5.1); SODIUM 142 MMOL/L (135-145); TOTAL CARBON DIOXIDE 29.5 MMOL/L (24-32); TOTAL PROTEIN 7.5 G/DL (6.4-8.2); eGFR 50 ML/MIN
[2021-07-07 06:26] LABS: CLARITY,URINE CLEAR (Clear); COLOR,URINE YELLOW (Yellow); GLUCOSE, URINE NEGATIVE (Neg); KETONES,URINE 15 mg/dl (Neg); LEUKOCYTE ESTERASE ,URINE NEGATIVE (Neg); NITRITES, URINE NEGATIVE (Neg); OCCULT BLOOD,URINE MODERATE (Neg); PH,URINE 5.5 (4.8-8.0); PROTEIN,URINE 100 mg/dl (Neg); UROBILINOGEN,URINE 0.2 E.U/dL (0.2-1.0)
[2021-07-07 06:36] LABS: UA COLLECTION TYPE NON-SPECIFIED
[2021-07-07 06:39] LABS: BACTERIA,URINE 1+ /HPF (Neg); MUCUS STRANDS MANY /LPF (Neg); SQUAMOUS EPITHELIAL CELL,UR MODERATE /LPF (FEW)
[2021-07-07] MEDS ORDERED: magnesium 2GM in 50ml NS 50 ML IV ONE (07:35)
[2021-07-07] MEDS ORDERED: potassium 10mEq/100ml NS w/LIDOcaine (10mg/bag) IV ONE (07:35)
[2021-07-07] MEDS ORDERED: potassium Cl 10 mEq/100mL bag IV ONE (07:45)
[2021-07-07 07:52] LABS: MAGNESIUM 2.3 MG/DL (1.5-2.4)
[2021-07-07] MEDS ORDERED: acetaminophen 325mg tablet PO PRN (08:05)
[2021-07-07] MEDS ORDERED: magnesium hydroxide 30ml (MOM) UD suspension PO PRN (08:05)
[2021-07-07] MEDS ORDERED: metoclopramide 5 mg/ml inj IV PRN (08:05)
[2021-07-07] MEDS ORDERED: ondansetron/PF 4mg/2ml inj IV PRN (08:05)
[2021-07-07] MEDS ORDERED: mag hydrox/Alum hydrox/simeth 30ml oral suspension PO PRN (08:05)
[2021-07-07] MEDS: dextrose 5%-1/2 normal saline 1,000 ML IV SCH ×2 (08:59→18:05)
--- NOTE | 2021-07-07 11:01 | NUR ---
PATIENT ARRIVED TO THE UNIT AAOX4 , NO SIGNS OF DISTRESS, NO COMPLAINTS OF PAIN. IV PATENT, VITALS TAKEN. PATIENT RESTING COMFORTABLY AND ORIENTED TO ROOM. BED ALARM ON AND CALL LIGHT GIVEN. BELONGINGS WITHIN REACH.
[2021-07-07] MEDS ORDERED: CARI-75 PO (11:39)
[2021-07-07] MEDS ORDERED: FLO0.4C PO (11:39)
--- NOTE | 2021-07-07 13:42 | NUR ---
Patients daughter Melony called, patient gave the ok to give her information. Melony's phone number is in the SBAR. Melony states that her father and mother have a hard time understanding the plan for treatment and are unable to let her know what is going on. Melony would like to speak with the surgeon prior to patient going to surgery.
[2021-07-07] MEDS ORDERED: fentaNYL/PF 50MCG/1 ML 2ML syringe ONE (16:48)
[2021-07-07] MEDS ORDERED: LIDOcaine Viscous 15ml cup ONE (16:48)
[2021-07-07] MEDS ORDERED: MIDAZolam 1 MG/ML 5ML VIAL ONE (16:48)
[2021-07-07] MEDS: CefTRIAXone/D5W-Rocephin 1gm 50 ML IV SCH (20:29)
[2021-07-07] MEDS: azithromycin/NS 500mg/250ml 250 ML IV SCH (21:06)
[2021-07-07] MEDS: docusate sod 100mg capsule PO SCH (21:10)
--- NOTE | 2021-07-07 21:12 | NUR ---
No order to continue troponins, order cancelled.
[2021-07-08 00:36] VITALS: BP 175/64
[2021-07-08] MEDS: acetaminophen 325mg tablet PO PRN (00:45)
[2021-07-08] MEDS ORDERED: LORazepam 2 mg/ml vial IV ONE (02:00)
[2021-07-08] MEDS: dextrose 5%-1/2 normal saline 1,000 ML IV SCH ×2 (04:05→09:42)
[2021-07-08 06:12] LABS: BASOPHILS % (AUTO) 0.3 % (0-1); EOSINOPHILS % (AUTO) 0 % (0-6); HEMOGLOBIN 11.7 g/dl (14.0-17.9); LYMPHOCYTES # (AUTO) 0.7 X10'3 (1.1-4.8); LYMPHOCYTES % (AUTO) 8.6 % (21-51); MEAN CORPUSCULAR HEMOGLOBIN 27.6 PG (27.0-31.0); MEAN CORPUSCULAR HGB CONC 33.5 g/dL (33.0-36.5); MEAN CORPUSCULAR VOLUME 82.3 FL (78-98); MEAN PLATELET VOLUME 8.8 FL (7.4-10.4); MONOCYTES % (AUTO) 13.1 % (2-12); PLATELET COUNT 170 X10'3 (140-440); RED BLOOD COUNT 4.25 X10'6 (4.70-6.10); RED CELL DISTRIBUTION WIDTH 15.7 % (11.5-14.5); WHITE BLOOD COUNT 7.7 X10'3 (4.5-11.0)
[2021-07-08 06:28] LABS: ALBUMIN 2.8 G/DL (3.4-5.0); ANION GAP 10 (8-16); BLOOD UREA NITROGEN 22 MG/DL (7-18); BUN/CREATININE RATIO 21.2 (5.4-32.0); CALCIUM 8.2 MG/DL (8.5-10.1); CHLORIDE 104 MMOL/L (99-107); CREATININE 1.04 MG/DL (0.60-1.10); GLUCOSE 135 MG/DL (70-104); POTASSIUM 3.2 MMOL/L (3.5-5.1); SODIUM 136 MMOL/L (135-145); TOTAL CARBON DIOXIDE 21.6 MMOL/L (24-32); eGFR 68 ML/MIN
[2021-07-08 07:00] VITALS: BP 165/95
[2021-07-08] MEDS: docusate sod 100mg capsule PO SCH ×2 (09:42→20:00)
[2021-07-08] MEDS: CefTRIAXone/D5W-Rocephin 1gm 50 ML IV SCH (09:43)
[2021-07-08 11:00] VITALS: BP 187/76
[2021-07-08 12:00] VITALS: BP 142/65
[2021-07-08] MEDS: azithromycin/NS 500mg/250ml 250 ML IV SCH (12:39)
[2021-07-08] MEDS: morphine 2 MG/ML inj. syringe IV PRN ×2 (12:56→22:07)
--- NOTE | 2021-07-08 18:00 | NUR ---
CALLED DR AUGUSTINE ON HIS CELL. LEFT A MESSAGE ABOUT BEING AT BED SIDE AND WANTING TO GET INFO FROM SURGEON. WAITED UNTIL 1830. THERE IS A NOTE TO CALL DAUGHTER WITH ALL DETAILS SO SHE IS ABLE TO TALK TO MOM AND EXPLAIN. CHARGE IS AWARE, RUTHIE.
--- NOTE | 2021-07-08 18:08 | NUR ---
Problems reprioritized. Patient report given, questions answered & plan of care reviewed with ANUP MUSA TRAVELER.
--- NOTE | 2021-07-08 18:30 | NUR ---
Pt in bed resting with sitter and at bed side. Pt daughter called at 1930 and was updated on pt's status.She requests to be updated daily.
[2021-07-08 20:00] VITALS: BP 188/83
--- NOTE | 2021-07-08 21:30 | NUR ---
Pt's IV (Extended) in left upper arm infiltrated and was discontinued.Charhouse Worker and another administrative staff supervisor attempted starting a new one but was unsuccessful.BELLSTAND ATTENDANT requested to help with IV insertion.
[2021-07-08 21:37] VITALS: BP 169/82
[2021-07-08] MEDS ORDERED: magnesium 2GM in 50ml NS 50 ML IV PRN (22:15)
[2021-07-08] MEDS ORDERED: magnesium 4gm in 100ml NS 100 ML IV PRN (22:15)
[2021-07-09] VITALS: BP 161/86
[2021-07-09] MEDS: dextrose 5%-1/2 normal saline 1,000 ML IV SCH ×3 (00:05→20:05)
[2021-07-09] MEDS: HYDROcodone/acetaminophen 10/325mg tab PO PRN (01:48)
[2021-07-09] MEDS: potassium CL 10mEq/100ml bag 100 ML IV PRN ×5 (02:57→17:42)
[2021-07-09 06:08] LABS: BASOPHILS % (AUTO) 0.3 % (0-1); EOSINOPHILS % (AUTO) 0.1 % (0-6); HEMATOCRIT 34.5 % (42.0-52.0); HEMOGLOBIN 11.6 g/dl (14.0-17.9); LYMPHOCYTES # (AUTO) 0.4 X10'3 (1.1-4.8); LYMPHOCYTES % (AUTO) 6.5 % (21-51); MEAN CORPUSCULAR HEMOGLOBIN 27.5 PG (27.0-31.0); MEAN CORPUSCULAR HGB CONC 33.5 g/dL (33.0-36.5); MEAN CORPUSCULAR VOLUME 82.1 FL (78-98); MEAN PLATELET VOLUME 8.8 FL (7.4-10.4); MONOCYTES # (AUTO) 0.8 X10'3 (0-0.9); MONOCYTES % (AUTO) 11.6 % (2-12); NEUTROPHILS # (AUTO) 5.4 X10'3 (1.8-7.7); NEUTROPHILS % (AUTO) 81.5 % (42-75); PLATELET COUNT 151 X10'3 (140-440); RED CELL DISTRIBUTION WIDTH 15.3 % (11.5-14.5); WHITE BLOOD COUNT 6.6 X10'3 (4.5-11.0)
[2021-07-09 06:20] LABS: ALBUMIN 2.5 G/DL (3.4-5.0); ANION GAP 9 (8-16); BLOOD UREA NITROGEN 20 MG/DL (7-18); BUN/CREATININE RATIO 18.5 (5.4-32.0); CALCIUM 8.1 MG/DL (8.5-10.1); CHLORIDE 108 MMOL/L (99-107); CREATININE 1.08 MG/DL (0.60-1.10); GLUCOSE 126 MG/DL (70-104); MAGNESIUM 2.1 MG/DL (1.5-2.4); POTASSIUM 3.2 MMOL/L (3.5-5.1); SODIUM 140 MMOL/L (135-145); TOTAL CARBON DIOXIDE 22.7 MMOL/L (24-32); eGFR 65 ML/MIN
--- NOTE | 2021-07-09 06:36 | NUR ---
Pt continues to need a 1:1 sitter for safety . Report given to incoming LENCHO Vela.
[2021-07-09 08:00] VITALS: BP 131/80
[2021-07-09] MEDS: docusate sod 100mg capsule PO SCH ×2 (08:00→20:00)
[2021-07-09] MEDS: CefTRIAXone/D5W-Rocephin 1gm 50 ML IV SCH (08:11)
[2021-07-09] MEDS: K and/or MAG REPLACEMENT MC SCH ×2 (08:12→20:00)
[2021-07-09] MEDS: azithromycin/NS 500mg/250ml 250 ML IV SCH (09:32)
[2021-07-09 11:00] VITALS: BP 189/81
[2021-07-09 13:41] VITALS: BP 156/71
[2021-07-09] MEDS: morphine 2 MG/ML inj. syringe IV PRN (16:40)
--- NOTE | 2021-07-09 18:12 | NUR ---
Gave report to Latonya MUSA.
--- NOTE | 2021-07-09 18:42 | NUR ---
Report received from Mirian MUSA
[2021-07-09 20:00] VITALS: BP 161/95
[2021-07-09] MEDS: diatr meglu/diatrizoate 30ml oral sol.-(3 dose) bottle PO SCH (20:50)
[2021-07-10] VITALS: BP 170/89
[2021-07-10] MEDS: acetaminophen 325mg tablet PO PRN (00:14)
[2021-07-10] MEDS: dextrose 5%-1/2 normal saline 1,000 ML IV SCH ×2 (00:20→12:53)
[2021-07-10] MEDS: morphine 2 MG/ML inj. syringe IV PRN ×2 (01:36→08:33)
[2021-07-10 05:46] VITALS: BP 139/67
[2021-07-10 06:06] LABS: BASOPHILS % (AUTO) 0.3 % (0-1); EOSINOPHILS % (AUTO) 0.2 % (0-6); HEMATOCRIT 35.3 % (42.0-52.0); HEMOGLOBIN 11.8 g/dl (14.0-17.9); LYMPHOCYTES # (AUTO) 0.3 X10'3 (1.1-4.8); LYMPHOCYTES % (AUTO) 5.1 % (21-51); MEAN CORPUSCULAR HEMOGLOBIN 27.3 PG (27.0-31.0); MEAN CORPUSCULAR HGB CONC 33.3 g/dL (33.0-36.5); MEAN CORPUSCULAR VOLUME 81.9 FL (78-98); MEAN PLATELET VOLUME 9.3 FL (7.4-10.4); MONOCYTES # (AUTO) 0.5 X10'3 (0-0.9); NEUTROPHILS # (AUTO) 5.7 X10'3 (1.8-7.7); NEUTROPHILS % (AUTO) 86.4 % (42-75); PLATELET COUNT 145 X10'3 (140-440); RED BLOOD COUNT 4.31 X10'6 (4.70-6.10); WHITE BLOOD COUNT 6.6 X10'3 (4.5-11.0)
[2021-07-10 06:30] VITALS: BP 143/73
--- NOTE | 2021-07-10 06:40 | NUR ---
Patient in room HECTOR 358. I have received report from LENCHO Hanks and had the opportunity to ask questions and assume patient care.
[2021-07-10 06:46] LABS: ALBUMIN 2.5 G/DL (3.4-5.0); ANION GAP 10 (8-16); BLOOD UREA NITROGEN 17 MG/DL (7-18); BUN/CREATININE RATIO 16.3 (5.4-32.0); CALCIUM 7.9 MG/DL (8.5-10.1); CHLORIDE 106 MMOL/L (99-107); CREATININE 1.04 MG/DL (0.60-1.10); GLUCOSE 138 MG/DL (70-104); MAGNESIUM 1.9 MG/DL (1.5-2.4); POTASSIUM 3.4 MMOL/L (3.5-5.1); SODIUM 140 MMOL/L (135-145); TOTAL CARBON DIOXIDE 23.6 MMOL/L (24-32); eGFR 68 ML/MIN
[2021-07-10] MEDS: docusate sod 100mg capsule PO SCH ×2 (08:00→20:00)
[2021-07-10] MEDS: K and/or MAG REPLACEMENT MC SCH ×2 (08:15→20:00)
[2021-07-10] MEDS: CefTRIAXone/D5W-Rocephin 1gm 50 ML IV SCH (08:32)
[2021-07-10] MEDS: potassium CL 10mEq/100ml bag 100 ML IV PRN ×5 (08:32→15:29)
[2021-07-10] MEDS: diatr meglu/diatrizoate 30ml oral sol.-(3 dose) bottle PO SCH ×2 (08:35→11:18)
[2021-07-10] MEDS: azithromycin/NS 500mg/250ml 250 ML IV SCH (09:40)
[2021-07-10] MEDS: LORazepam 2 mg/ml vial IV PRN ×2 (10:48→23:52)
[2021-07-10 11:00] VITALS: BP 123/81
[2021-07-10] MEDS ORDERED: aminophylline 250mg/10ml inj. IV PRN (14:05)
[2021-07-10] MEDS ORDERED: metoprolol tartrate 1mg/ml inj IV PRN (14:05)
[2021-07-10] MEDS ORDERED: regadenoson 0.4mg/5ml syringe IV PRN (14:05)
[2021-07-10] MEDS ORDERED: nitroGLYCERIN 0.4mg SUBLingual tab SL PRN (14:05)
[2021-07-10] MEDS ORDERED: bisacodyl 10mg suppository rectal RC PRN (16:35)
[2021-07-10 18:00] VITALS: BP 142/90
--- NOTE | 2021-07-10 18:40 | NUR ---
Problems reprioritized. Patient report given, questions answered & plan of care reviewed with LENCHO Camarillo.
--- NOTE | 2021-07-10 19:22 | NUR ---
Patient in room HECTOR 350. I have received report from LENCHO Sandoval and had the opportunity to ask questions and assume patient care.
[2021-07-11] VITALS (8 sets, daily range): BP systolic 135–160; BP diastolic 74–102
[2021-07-11] MEDS: dextrose 5%-1/2 normal saline 1,000 ML IV SCH ×3 (02:13→22:05)
--- NOTE | 2021-07-11 06:52 | NUR ---
Problems reprioritized. Patient report given, questions answered & plan of care reviewed with LENCHO Sandoval.
[2021-07-11 06:55] LABS: BASOPHILS % (AUTO) 0.3 % (0-1); EOSINOPHILS % (AUTO) 0 % (0-6); HEMOGLOBIN 11.8 g/dl (14.0-17.9); LYMPHOCYTES # (AUTO) 0.4 X10'3 (1.1-4.8); LYMPHOCYTES % (AUTO) 6.6 % (21-51); MEAN CORPUSCULAR HEMOGLOBIN 27.1 PG (27.0-31.0); MEAN CORPUSCULAR HGB CONC 32.8 g/dL (33.0-36.5); MEAN CORPUSCULAR VOLUME 82.5 FL (78-98); MEAN PLATELET VOLUME 9.8 FL (7.4-10.4); MONOCYTES # (AUTO) 0.5 X10'3 (0-0.9); MONOCYTES % (AUTO) 8.4 % (2-12); NEUTROPHILS # (AUTO) 4.7 X10'3 (1.8-7.7); NEUTROPHILS % (AUTO) 84.7 % (42-75); PLATELET COUNT 152 X10'3 (140-440); RED BLOOD COUNT 4.36 X10'6 (4.70-6.10); RED CELL DISTRIBUTION WIDTH 15.3 % (11.5-14.5); WHITE BLOOD COUNT 5.6 X10'3 (4.5-11.0)
[2021-07-11 06:56] LABS: ALBUMIN 2.2 G/DL (3.4-5.0); ANION GAP 11 (8-16); BLOOD UREA NITROGEN 15 MG/DL (7-18); BUN/CREATININE RATIO 15.3 (5.4-32.0); CHLORIDE 106 MMOL/L (99-107); CREATININE 0.98 MG/DL (0.60-1.10); GLUCOSE 147 MG/DL (70-104); POTASSIUM 3.5 MMOL/L (3.5-5.1); SODIUM 139 MMOL/L (135-145); TOTAL CARBON DIOXIDE 22.5 MMOL/L (24-32); eGFR 73 ML/MIN
--- NOTE | 2021-07-11 07:00 | NUR ---
Patient in room HECTOR 358. I have received report from LENCHO Camarillo and had the opportunity to ask questions and assume patient care.
[2021-07-11] MEDS: K and/or MAG REPLACEMENT MC SCH ×2 (08:00→20:00)
[2021-07-11] MEDS: docusate sod 100mg capsule PO SCH ×2 (08:00→20:00)
[2021-07-11] MEDS: CefTRIAXone/D5W-Rocephin 1gm 50 ML IV SCH (11:02)
[2021-07-11] MEDS: azithromycin/NS 500mg/250ml 250 ML IV SCH (11:45)
--- NOTE | 2021-07-11 11:59 | NUR ---
Patient in room HECTOR 358. I have received report from Lori MUSA Med-surg unit and had the opportunity to ask questions and assume patient care.
--- NOTE | 2021-07-11 12:05 | NUR ---
Report given to CHAIR FRAME BUILDER, Sandhya
--- NOTE | 2021-07-11 14:30 | NUR ---
Pt transferred to U
--- NOTE | 2021-07-11 14:51 | NUR ---
Dr Don was paged : RE: Jean-Pierre Lundy [phone], Pt was transferred here for brigid yepez, may I have the order please
--- NOTE | 2021-07-11 16:31 | NUR ---
Pagemarco antonio Don : Jean-Pierre Tsai [phone], BP 156/92 HR 144
[2021-07-11] MEDS: diltiazem-NS 100mg/100ml 100 ML IV SCH (17:40)
--- NOTE | 2021-07-11 19:11 | NUR ---
Problems reprioritized. Patient report given, questions answered & plan of care reviewed with Demond MUSA[].
[2021-07-12] VITALS (13 sets, daily range): BP systolic 114–161; BP diastolic 55–82
[2021-07-12] MEDS: diltiazem-NS 100mg/100ml 100 ML IV SCH ×3 (01:17→13:30)
[2021-07-12 06:41] LABS: ALBUMIN 2.3 G/DL (3.4-5.0); ANION GAP 9 (8-16); BLOOD UREA NITROGEN 16 MG/DL (7-18); BUN/CREATININE RATIO 14.5 (5.4-32.0); CHLORIDE 105 MMOL/L (99-107); GLUCOSE 136 MG/DL (70-104); MAGNESIUM 1.9 MG/DL (1.5-2.4); POTASSIUM 3.8 MMOL/L (3.5-5.1); SODIUM 139 MMOL/L (135-145); TOTAL CARBON DIOXIDE 25.5 MMOL/L (24-32); eGFR 64 ML/MIN
[2021-07-12] MEDS ORDERED: gentamicin 40 MG/1 ML inj ONE (06:42)
[2021-07-12] MEDS ORDERED: clindamycin phosphate 150mg/ml inj. ONE (06:42)
[2021-07-12 06:52] LABS: BASOPHILS % (AUTO) 0.2 % (0-1); EOSINOPHILS % (AUTO) 0 % (0-6); HEMATOCRIT 37.3 % (42.0-52.0); HEMOGLOBIN 12.5 g/dl (14.0-17.9); LYMPHOCYTES # (AUTO) 0.4 X10'3 (1.1-4.8); LYMPHOCYTES % (AUTO) 5.2 % (21-51); MEAN CORPUSCULAR HEMOGLOBIN 27.3 PG (27.0-31.0); MEAN CORPUSCULAR HGB CONC 33.4 g/dL (33.0-36.5); MEAN CORPUSCULAR VOLUME 81.7 FL (78-98); MEAN PLATELET VOLUME 8.7 FL (7.4-10.4); MONOCYTES # (AUTO) 0.5 X10'3 (0-0.9); MONOCYTES % (AUTO) 6.5 % (2-12); NEUTROPHILS # (AUTO) 6.2 X10'3 (1.8-7.7); NEUTROPHILS % (AUTO) 88.1 % (42-75); PLATELET COUNT 152 X10'3 (140-440); RED BLOOD COUNT 4.57 X10'6 (4.70-6.10); RED CELL DISTRIBUTION WIDTH 15.5 % (11.5-14.5); WHITE BLOOD COUNT 7.1 X10'3 (4.5-11.0)
[2021-07-12] MEDS: CefTRIAXone/D5W-Rocephin 1gm 50 ML IV SCH (07:44)
[2021-07-12] MEDS: docusate sod 100mg capsule PO SCH ×2 (07:52→20:00)
[2021-07-12] MEDS: azithromycin/NS 500mg/250ml 250 ML IV SCH (08:00)
[2021-07-12] MEDS: K and/or MAG REPLACEMENT MC SCH ×3 (08:00→20:00)
[2021-07-12] MEDS: dextrose 5%-1/2 normal saline 1,000 ML IV SCH ×2 (08:05→18:05)
[2021-07-12] MEDS ORDERED: desflurane 240ml liquid inh. IH ONE (08:32)
[2021-07-12] MEDS ORDERED: glycopyrrolate 0.2mg/ml inj ONE (08:32)
[2021-07-12] MEDS ORDERED: neostigmine methylsulfate 1 MG/ML 10ml vial ONE (08:32)
[2021-07-12] MEDS ORDERED: ondansetron/PF 4mg/2ml inj ONE (08:32)
[2021-07-12] MEDS ORDERED: dexamethasone sod phosphate 10mg/ml inj ONE (08:32)
[2021-07-12] MEDS ORDERED: midazolam 1 mg/ML 2ml injection ONE (08:43)
[2021-07-12] MEDS ORDERED: fentaNYL /PF 50mcg/ml 5ml ampule ONE (08:44)
[2021-07-12] MEDS ORDERED: propofol inj 20 ML IV ONE (08:46)
[2021-07-12] MEDS ORDERED: LIDOcaine 2% (20mg/ml) 5ml vial ONE (08:46)
[2021-07-12] MEDS ORDERED: rocuronium 10mg/ml inj IV ONE (09:22)
[2021-07-12] MEDS ORDERED: BUPIVAcaine/PF 2.5 mg/ml (0.25%) 30ml vial ONE (09:35)
[2021-07-12] MEDS ORDERED: BUPIVACAINE liposomal/PF 13.3 MG/ML vial IM ONE (09:36)
--- NOTE | 2021-07-12 10:12 | NUR ---
Patient in room PCU 3023. I have received report from Demond MUSA and had the opportunity to ask questions and assume patient care.
[2021-07-12] MEDS ORDERED: HYDROmorphone inj. 0.5 MG/0.5 ML DISP.SYRIN IV PRN (10:30)
[2021-07-12] MEDS ORDERED: acetaminophen 1,000mg/100ml IV 100 ML IV ONE (10:33)
--- NOTE | 2021-07-12 10:43 | NUR ---
PATIENT ARRIVED FROM OR WITHOUT NG TUBE. Addendum: 07/12/21 at 1143 by Shantel Boswell RN Amended: Links added.
--- NOTE | 2021-07-12 10:43 | NUR ---
Received from OR via BED IN STABLE CONDITION , accompanied by Anesthesiologist and TRANSFER MAN report given by TRANSFER MAN AND Anesthesiolgist. Addendum: 07/12/21 at 1108 by Shantel Boswell RN Amended: Links added.
--- NOTE | 2021-07-12 11:00 | NUR ---
Patient not on floor for 1100 vitals
[2021-07-12] MEDS ORDERED: morphine 2 MG/ML inj. syringe IV PRN (11:35)
[2021-07-12] MEDS ORDERED: ondansetron/PF 4mg/2ml inj IV PRN (11:35)
[2021-07-12] MEDS ORDERED: ringers solution, lacted 1,000 ML IV SCH (11:35)
[2021-07-12] MEDS ORDERED: morphine 4 MG/ML inj SYRINge IV PRN (11:35)
[2021-07-12] MEDS ORDERED: meperidine/PF 25mg/ml syringe IV PRN ×3 (11:35)
[2021-07-12] MEDS ORDERED: proCHLORperazine 10 MG/2 ml inj IV PRN (11:35)
--- NOTE | 2021-07-12 11:54 | NUR ---
received report from Irene PACU nurse and will assume patient care when he returns to the floor.
--- NOTE | 2021-07-12 12:13 | NUR ---
PATIENT DISCHARGED FROM PACU IN STABLE CONDITION AFTER REPORT GIVEN TO RN TAKING OVER PATIENTS CARE. PATIENT TRANSPORTED ON MONITOR VIA BED WITH RN X2. Addendum: 07/12/21 at 1229 by Shantel Boswell RN Amended: Links added.
--- NOTE | 2021-07-12 12:22 | NUR ---
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 Pt to go to OR today for repair of hernia per RN. Pt on day 5 of being NPO w/ LBM 07/06. Limited nutrition interventions at this time though would recommend advancing as tolerated to Regular diet s/p procedure. Will continue to monitor for further nutrition interventions. Recs: 1. Advance as tolerated to Regular diet s/p procedure per MD discretion 2. Monitor need for additional protein/ONS 3. Bowel care per MD 4. Weekly wt Addendum: 07/12/21 at [address] Amended: Links added.
--- NOTE | 2021-07-12 12:30 | NUR ---
Attempted to call Iris () to obtain consent for PICC line. Will try again soon and or wait for patient to arouse.
--- NOTE | 2021-07-12 13:26 | NUR ---
Sent page to PICC nurse: Please place picc for Jean-Pierre Lundy room 3028M for TPN
--- NOTE | 2021-07-12 15:17 | NUR ---
TPN consult: see recs below, d/w pharmacist Recs: 1. Continuous TPN per MD using 2:1 Clinimix E 5/20 at 95ml/hr goal with additional 100ml 20% ILE to run at 8.33ml/hr for 12 hr/day. In total to provide 2380ml volume, 2206kcals, 114g AA, 456g Dex (2.62mg/kg/min GIR) 2. Advance as tolerated to Regular diet s/p procedure per MD discretion 3. Monitor need for additional protein/ONS 4. Bowel care per MD 5. Weekly wt Addendum: 07/12/21 at [address] Amended: Links added.
[2021-07-12] MEDS ORDERED: magnesium 4gm in 100ml NS 100 ML IV PRN (15:50)
[2021-07-12] MEDS ORDERED: potassium Cl 20mEq/100mL bag 100 ML IV PRN (15:50)
[2021-07-12] MEDS ORDERED: magnesium 2GM in 50ml NS 50 ML IV PRN (15:50)
[2021-07-12] MEDS ORDERED: potassium CL 10mEq/100ml bag 100 ML IV PRN (15:50)
[2021-07-12] MEDS ORDERED: Dextrose 10%-water IV solution 1,000 ML IV PRN (15:50)
[2021-07-12] MEDS ORDERED: potassium Cl 20 mEq SR tablet PO PRN ×2 (15:50)
[2021-07-12] MEDS ORDERED: magnesium Cl slow-release 64mg tablet PO PRN (15:50)
[2021-07-12 16:14] LABS: PHOSPHORUS 2.3 MG/DL (2.3-4.5); PREALBUMIN 8.7 MG/DL (19-36); TRIGLYCERIDES 66 MG/DL (20-135)
[2021-07-12] MEDS ORDERED: ZINC/COPPER/MANGANESE/SELENIUM 0.5 ML, chromic chloride inj. 5 MCG in AA 5%/CALCIUM/LYT... IV SCH (17:00)
--- NOTE | 2021-07-12 18:49 | NUR ---
Problems reprioritized. Patient report given, questions answered & plan of care reviewed with Demond MUSA.
[2021-07-12] MEDS ORDERED: dextrose ORAL solution 15 GM/59 ML bottle PO PRN ×5 (20:38→20:40)
[2021-07-12] MEDS ORDERED: dextrose 50%-water 50ml dispensing syringe IV PRN ×2 (20:40)
[2021-07-12] MEDS ORDERED: insulin Lispro (HumaLOG) vial - multi-dose SQ SCH ×2 (20:40)
[2021-07-12] MEDS ORDERED: glucagon, human recombinant 1mg kit SUBCUT PRN ×2 (20:40)
[2021-07-12] MEDS ORDERED: MESSAGE TO PHARMACY PO ONE ×3 (20:40)
[2021-07-12] MEDS: insulin regular, human U-100 3ml vial - multi-dose SQ SCH (21:26)
[2021-07-12] MEDS: fat emulsion 20% IV 100 ML IV SCH (21:27)
[2021-07-12 21:40] LABS: HEMOGLOBIN A1C 6.1 % (4.5-6.2)
[2021-07-13] MEDS: LORazepam 2 mg/ml vial IV PRN ×2 (01:55→18:39)
[2021-07-13] MEDS: insulin regular, human U-100 3ml vial - multi-dose SQ SCH ×2 (02:15→20:49)
[2021-07-13] MEDS: dextrose 5%-1/2 normal saline 1,000 ML IV SCH (04:05)
[2021-07-13 06:00] VITALS: BP 120/70
--- NOTE | 2021-07-13 06:34 | NUR ---
Patient in room PCU 3023. I have received report from Demond MUSA and had the opportunity to ask questions and assume patient care.
[2021-07-13] MEDS: docusate sod 100mg capsule PO SCH ×2 (08:00→20:00)
[2021-07-13] MEDS: K and/or MAG REPLACEMENT MC SCH ×2 (08:00→20:00)
[2021-07-13] MEDS: CefTRIAXone/D5W-Rocephin 1gm 50 ML IV SCH (08:56)
[2021-07-13] MEDS: azithromycin/NS 500mg/250ml 250 ML IV SCH (09:39)
--- NOTE | 2021-07-13 10:14 | NUR ---
patient refused 8 am accucheck
--- NOTE | 2021-07-13 10:18 | NUR ---
Page sent to PT: Will you please assist Jean-Pierre Lundy room [id number] back to bed?
[2021-07-13 11:00] VITALS: BP 129/64
[2021-07-13 12:14] LABS: ALANINE AMINOTRANSFERASE 24 U/L (12-78); ALBUMIN 1.9 G/DL (3.4-5.0); ALBUMIN/GLOBULIN RATIO 0.5 (1.1-1.5); ALKALINE PHOSPHATASE 51 IU/L (46-116); ANION GAP 11 (8-16); ASPARTATE AMINO TRANSFERASE 21 U/L (10-37); BILIRUBIN,TOTAL 0.3 MG/DL (0.1-1.0); BLOOD UREA NITROGEN 27 MG/DL (7-18); BUN/CREATININE RATIO 26.7 (5.4-32.0); CALCIUM 7.8 MG/DL (8.5-10.1); CHLORIDE 104 MMOL/L (99-107); CREATININE 1.01 MG/DL (0.60-1.10); GLUCOSE 255 MG/DL (70-104); PHOSPHORUS 1.7 MG/DL (2.3-4.5); POTASSIUM 3.9 MMOL/L (3.5-5.1); SODIUM 138 MMOL/L (135-145); TOTAL CARBON DIOXIDE 23.4 MMOL/L (24-32); TOTAL PROTEIN 5.5 G/DL (6.4-8.2); eGFR 71 ML/MIN
[2021-07-13] MEDS: diltiazem-NS 100mg/100ml 100 ML IV SCH (13:51)
[2021-07-13] MEDS: ZINC/COPPER/MANGANESE/SELENIUM 0.5 ML, chromic chloride inj. 5 MCG in AA 5%/CALCIUM/LYT... IV SCH ×2 (13:54→23:53)
[2021-07-13 15:00] VITALS: BP 116/73
[2021-07-13] MEDS ORDERED: MVI, adult No.4 with vit. K 10 ML in dextrose 5% water 500ml 500 ML IV SCH ×2 (15:50)
[2021-07-13 18:00] VITALS: BP 145/85
--- NOTE | 2021-07-13 18:16 | NUR ---
Problems reprioritized. Patient report given, questions answered & plan of care reviewed with Aleksandra MUSA.
--- NOTE | 2021-07-13 18:30 | NUR ---
Patient in room PCU 3023. I have received report from Kelsy MUSA and had the opportunity to ask questions and assume patient care.
[2021-07-13] MEDS: fat emulsion 20% IV 100 ML IV SCH (20:00)
[2021-07-13 22:00] VITALS: BP 129/73
[2021-07-14 02:00] VITALS: BP 133/66
[2021-07-14] MEDS: diltiazem-NS 100mg/100ml 100 ML IV SCH (02:49)
[2021-07-14] MEDS: insulin regular, human U-100 3ml vial - multi-dose SQ SCH ×2 (03:05→14:20)
--- NOTE | 2021-07-14 06:33 | NUR ---
Problems reprioritized. Patient report given, questions answered & plan of care reviewed with Luis M MSUA.
[2021-07-14] MEDS: docusate sod 100mg capsule PO SCH ×2 (08:00→08:35)
[2021-07-14] MEDS: K and/or MAG REPLACEMENT MC SCH ×2 (08:00→20:00)
[2021-07-14] MEDS: azithromycin/NS 500mg/250ml 250 ML IV SCH (08:34)
[2021-07-14] MEDS: CefTRIAXone/D5W-Rocephin 1gm 50 ML IV SCH (08:34)
[2021-07-14 08:48] VITALS: BP 124/95
[2021-07-14] MEDS ORDERED: LORazepam 2 mg/ml vial IV PRN (09:30)
[2021-07-14] MEDS: ZINC/COPPER/MANGANESE/SELENIUM 0.5 ML, chromic chloride inj. 5 MCG in AA 5%/CALCIUM/LYT... IV SCH ×2 (10:43→21:35)
[2021-07-14 10:57] LABS: BASOPHILS % (AUTO) 0.2 % (0-1); EOSINOPHILS % (AUTO) 0 % (0-6); HEMATOCRIT 34.8 % (42.0-52.0); HEMOGLOBIN 11.6 g/dl (14.0-17.9); LYMPHOCYTES # (AUTO) 0.2 X10'3 (1.1-4.8); LYMPHOCYTES % (AUTO) 1.7 % (21-51); MEAN CORPUSCULAR HEMOGLOBIN 27.1 PG (27.0-31.0); MEAN CORPUSCULAR HGB CONC 33.2 g/dL (33.0-36.5); MEAN CORPUSCULAR VOLUME 81.6 FL (78-98); MEAN PLATELET VOLUME 9.1 FL (7.4-10.4); MONOCYTES # (AUTO) 0.3 X10'3 (0-0.9); MONOCYTES % (AUTO) 2.7 % (2-12); NEUTROPHILS # (AUTO) 9.9 X10'3 (1.8-7.7); NEUTROPHILS % (AUTO) 95.4 % (42-75); PLATELET COUNT 166 X10'3 (140-440); RED BLOOD COUNT 4.26 X10'6 (4.70-6.10); RED CELL DISTRIBUTION WIDTH 15.6 % (11.5-14.5); WHITE BLOOD COUNT 10.3 X10'3 (4.5-11.0)
[2021-07-14 11:08] LABS: ALANINE AMINOTRANSFERASE 57 U/L (12-78); ALBUMIN 1.7 G/DL (3.4-5.0); ALBUMIN/GLOBULIN RATIO 0.5 (1.1-1.5); ALKALINE PHOSPHATASE 54 IU/L (46-116); ANION GAP 7 (8-16); ASPARTATE AMINO TRANSFERASE 81 U/L (10-37); BILIRUBIN,TOTAL 0.3 MG/DL (0.1-1.0); BLOOD UREA NITROGEN 29 MG/DL (7-18); BUN/CREATININE RATIO 30.2 (5.4-32.0); CALCIUM 7.5 MG/DL (8.5-10.1); CHLORIDE 105 MMOL/L (99-107); CREATININE 0.96 MG/DL (0.60-1.10); GLUCOSE 171 MG/DL (70-104); PHOSPHORUS 2.3 MG/DL (2.3-4.5); POTASSIUM 3.6 MMOL/L (3.5-5.1); SODIUM 136 MMOL/L (135-145); TOTAL CARBON DIOXIDE 23.6 MMOL/L (24-32); TOTAL PROTEIN 5.2 G/DL (6.4-8.2); eGFR 75 ML/MIN
[2021-07-14 11:11] VITALS: BP 106/66
[2021-07-14 15:36] VITALS: BP 137/70
[2021-07-14] MEDS: diltiazem SR 60mg capsule (twice daily) PO SCH (20:00)
[2021-07-14] MEDS: fat emulsion 20% IV 100 ML IV SCH (20:58)
[2021-07-14 22:00] VITALS: BP 158/68
--- NOTE | 2021-07-14 22:00 | NUR ---
patient failed swallow evaluation NPO for now. Cardizem cap not administered HR 107 , DR mehta notified, monitor HR and BP as per MD
[2021-07-15] MEDS: insulin regular, human U-100 3ml vial - multi-dose SQ SCH ×2 (02:25→13:07)
[2021-07-15 06:00] VITALS: BP 162/85
--- NOTE | 2021-07-15 06:33 | NUR ---
dressing change done, midline incision shows no signs of infection.
--- NOTE | 2021-07-15 06:38 | NUR ---
Patient report given, questions answered & plan of care reviewed with oncoming RN.
[2021-07-15 07:41] LABS: PREALBUMIN 11.1 MG/DL (19-36)
[2021-07-15] MEDS: K and/or MAG REPLACEMENT MC SCH ×2 (08:00→20:00)
[2021-07-15] MEDS: diltiazem SR 60mg capsule (twice daily) PO SCH ×2 (08:40→20:00)
[2021-07-15] MEDS: CefTRIAXone/D5W-Rocephin 1gm 50 ML IV SCH (08:40)
[2021-07-15] MEDS: ZINC/COPPER/MANGANESE/SELENIUM 0.5 ML, chromic chloride inj. 5 MCG in AA 5%/CALCIUM/LYT... IV SCH (08:41)
[2021-07-15 11:00] VITALS: BP 132/76
[2021-07-15 11:18] LABS: BASOPHILS # (AUTO) 0.1 X10'3 (0-0.2); BASOPHILS % (AUTO) 0.5 % (0-1); EOSINOPHILS % (AUTO) 0.3 % (0-6); HEMATOCRIT 36.5 % (42.0-52.0); HEMOGLOBIN 12.2 g/dl (14.0-17.9); LYMPHOCYTES # (AUTO) 0.5 X10'3 (1.1-4.8); LYMPHOCYTES % (AUTO) 4.5 % (21-51); MEAN CORPUSCULAR HEMOGLOBIN 27.1 PG (27.0-31.0); MEAN CORPUSCULAR HGB CONC 33.4 g/dL (33.0-36.5); MEAN CORPUSCULAR VOLUME 81.1 FL (78-98); MONOCYTES # (AUTO) 0.4 X10'3 (0-0.9); MONOCYTES % (AUTO) 3.6 % (2-12); NEUTROPHILS # (AUTO) 9.3 X10'3 (1.8-7.7); NEUTROPHILS % (AUTO) 91.1 % (42-75); PLATELET COUNT 177 X10'3 (140-440); RED CELL DISTRIBUTION WIDTH 15.3 % (11.5-14.5); WHITE BLOOD COUNT 10.2 X10'3 (4.5-11.0)
[2021-07-15 11:46] LABS: ELLIPTOCYTES FEW; PLATELET ESTIMATE NORMAL; SCHISTOCYTES FEW; TOTAL CELLS COUNTED 100
[2021-07-15 11:47] LABS: ALANINE AMINOTRANSFERASE 194 U/L (12-78); ALBUMIN 1.8 G/DL (3.4-5.0); ALBUMIN/GLOBULIN RATIO 0.5 (1.1-1.5); ALKALINE PHOSPHATASE 81 IU/L (46-116); ANION GAP 9 (8-16); ASPARTATE AMINO TRANSFERASE 211 U/L (10-37); BILIRUBIN,TOTAL 0.5 MG/DL (0.1-1.0); BLOOD UREA NITROGEN 26 MG/DL (7-18); BURR CELLS FEW; CALCIUM 7.5 MG/DL (8.5-10.1); CHLORIDE 104 MMOL/L (99-107); CREATININE 0.84 MG/DL (0.60-1.10); GLUCOSE 142 MG/DL (70-104); POTASSIUM 3.9 MMOL/L (3.5-5.1); SODIUM 137 MMOL/L (135-145); TOTAL CARBON DIOXIDE 23.8 MMOL/L (24-32); TOTAL PROTEIN 5.5 G/DL (6.4-8.2); eGFR 87 ML/MIN
--- NOTE | 2021-07-15 12:05 | NUR ---
Reassessment: Pt s/p open G-tube placement 07/12. Per ceo and founder 07/14 pt failed swallow eval and remained NPO. TPN running at goal rate with no s/s refeeding. PO diet was advanced to clear liquids today and pt s/p BSS today with ST recs to continue clear liquid diet though pt needs a feeder d/t cognitive level. Noted pt documented with 25% PO intake first meal. Recommend continuing with TPN until PO diet able to be advanced as pt unable to meet estimated nutrient needs with current diet order and predicted to have suboptimal PO intake in view of current mentation. IF okay with MD, recommend transitioning to EN to utilize GI tract IF pt with insufficient PO intake. LBM 07/14, first BM since admit per EMR. Will continue to follow closely. Recommendations: 1. Continuous TPN per MD using 2:1 Clinimix-E 12/03 at 95 ml/hr goal with additional 100 ml 20% intralipids to run at 8.33 ml/hr for 12 hrs/day. In total to provide 2380 ml volume/day, 2206 kcal, 114 g AA, and 456 g Dex (2.48 mg/kg/min GIR) 2. Prealbumin and TG q Monday/ 3. Daily scaled weights 4. Advance to regular diet as medically indicated; assist with meals per ST 5. IF pt with insufficient PO intake or prolonged insufficient diet order, transition to EN for supplemental vs full nutrition given function gut 6. Bowel care per MD Addendum: 07/15/21 at [address] Amended: Links added.
[2021-07-15 15:00] VITALS: BP 136/88
[2021-07-15] MEDS: normal saline 1000ml 1,000 ML IV SCH (15:17)
[2021-07-15 18:00] VITALS: BP 124/80
[2021-07-15 22:00] VITALS: BP 132/108
[2021-07-16 02:00] VITALS: BP 136/88
[2021-07-16] MEDS: normal saline 1000ml 1,000 ML IV SCH ×2 (04:07→17:15)
[2021-07-16 06:06] VITALS: BP 147/93
[2021-07-16 09:21] LABS: BASOPHILS % (AUTO) 0.2 % (0-1); EOSINOPHILS # (AUTO) 0.1 X10'3 (0-0.9); EOSINOPHILS % (AUTO) 0.9 % (0-6); HEMATOCRIT 36.7 % (42.0-52.0); HEMOGLOBIN 12.2 g/dl (14.0-17.9); LYMPHOCYTES # (AUTO) 0.4 X10'3 (1.1-4.8); LYMPHOCYTES % (AUTO) 3.8 % (21-51); MEAN CORPUSCULAR HEMOGLOBIN 27.1 PG (27.0-31.0); MEAN CORPUSCULAR HGB CONC 33.2 g/dL (33.0-36.5); MEAN CORPUSCULAR VOLUME 81.6 FL (78-98); MEAN PLATELET VOLUME 9.3 FL (7.4-10.4); MONOCYTES # (AUTO) 0.5 X10'3 (0-0.9); MONOCYTES % (AUTO) 5.5 % (2-12); NEUTROPHILS % (AUTO) 89.6 % (42-75); PLATELET COUNT 185 X10'3 (140-440); RED CELL DISTRIBUTION WIDTH 15.5 % (11.5-14.5)
[2021-07-16] MEDS: diltiazem SR 60mg capsule (twice daily) PO SCH (09:34)
[2021-07-16] MEDS: CefTRIAXone/D5W-Rocephin 1gm 50 ML IV SCH (09:34)
[2021-07-16] MEDS: K and/or MAG REPLACEMENT MC SCH ×2 (09:34→20:00)
[2021-07-16 09:35] LABS: ALANINE AMINOTRANSFERASE 160 U/L (12-78); ALBUMIN 1.7 G/DL (3.4-5.0); ALBUMIN/GLOBULIN RATIO 0.5 (1.1-1.5); ALKALINE PHOSPHATASE 83 IU/L (46-116); ANION GAP 7 (8-16); ASPARTATE AMINO TRANSFERASE 111 U/L (10-37); BILIRUBIN,TOTAL 0.5 MG/DL (0.1-1.0); BLOOD UREA NITROGEN 24 MG/DL (7-18); BUN/CREATININE RATIO 27.9 (5.4-32.0); CALCIUM 7.5 MG/DL (8.5-10.1); CHLORIDE 105 MMOL/L (99-107); CREATININE 0.86 MG/DL (0.60-1.10); GLUCOSE 129 MG/DL (70-104); SODIUM 137 MMOL/L (135-145); TOTAL CARBON DIOXIDE 24.6 MMOL/L (24-32); TOTAL PROTEIN 5.3 G/DL (6.4-8.2); eGFR 85 ML/MIN
[2021-07-16 10:10] VITALS: BP 126/84
[2021-07-16] MEDS ORDERED: furosemide 20 MG/2 ML vial IV ONE (10:40)
[2021-07-16 15:15] VITALS: BP 107/80
[2021-07-16 18:00] VITALS: BP 161/52
[2021-07-16] MEDS: diltiazem CD 120mg capsule (once-daily) PO SCH (20:47)
[2021-07-16] MEDS: HYDROcodone/acetaminophen 5mg/325mg tablet PO PRN (20:52)
[2021-07-16 22:00] VITALS: BP 151/70
[2021-07-17] MEDS ORDERED: LORazepam 1 MG tablet PO PRN (01:35)
[2021-07-17 02:00] VITALS: BP 135/80
[2021-07-17 06:00] VITALS: BP 153/123
--- NOTE | 2021-07-17 06:18 | NUR ---
Problems reprioritized. Patient report given, questions answered & plan of care reviewed with SABIHA.
--- NOTE | 2021-07-17 06:27 | NUR ---
Problems reprioritized. Patient report given, questions answered & plan of care reviewed with Kiera.
--- NOTE | 2021-07-17 06:30 | NUR ---
Patient in room PCU 3023. I have received report from Lilia MUSA and had the opportunity to ask questions and assume patient care.
[2021-07-17] MEDS: normal saline 1000ml 1,000 ML IV SCH ×2 (06:40→20:00)
[2021-07-17 07:45] LABS: BASOPHILS # (AUTO) 0.1 X10'3 (0-0.2); BASOPHILS % (AUTO) 0.8 % (0-1); EOSINOPHILS # (AUTO) 0.1 X10'3 (0-0.9); EOSINOPHILS % (AUTO) 1.4 % (0-6); HEMATOCRIT 34.4 % (42.0-52.0); HEMOGLOBIN 11.5 g/dl (14.0-17.9); LYMPHOCYTES # (AUTO) 0.4 X10'3 (1.1-4.8); LYMPHOCYTES % (AUTO) 3.8 % (21-51); MEAN CORPUSCULAR HEMOGLOBIN 27.1 PG (27.0-31.0); MEAN CORPUSCULAR HGB CONC 33.5 g/dL (33.0-36.5); MEAN CORPUSCULAR VOLUME 80.7 FL (78-98); MEAN PLATELET VOLUME 8.9 FL (7.4-10.4); MONOCYTES # (AUTO) 0.8 X10'3 (0-0.9); MONOCYTES % (AUTO) 7.7 % (2-12); NEUTROPHILS # (AUTO) 8.5 X10'3 (1.8-7.7); NEUTROPHILS % (AUTO) 86.3 % (42-75); PLATELET COUNT 208 X10'3 (140-440); RED BLOOD COUNT 4.26 X10'6 (4.70-6.10); RED CELL DISTRIBUTION WIDTH 15.5 % (11.5-14.5); WHITE BLOOD COUNT 9.9 X10'3 (4.5-11.0)
[2021-07-17] MEDS: K and/or MAG REPLACEMENT MC SCH ×2 (08:00→20:00)
[2021-07-17 08:05] LABS: ALANINE AMINOTRANSFERASE 120 U/L (12-78); ALBUMIN 1.8 G/DL (3.4-5.0); ALBUMIN/GLOBULIN RATIO 0.5 (1.1-1.5); ALKALINE PHOSPHATASE 83 IU/L (46-116); ANION GAP 8 (8-16); ASPARTATE AMINO TRANSFERASE 54 U/L (10-37); BILIRUBIN,TOTAL 0.6 MG/DL (0.1-1.0); BLOOD UREA NITROGEN 22 MG/DL (7-18); BUN/CREATININE RATIO 23.9 (5.4-32.0); CHLORIDE 108 MMOL/L (99-107); CREATININE 0.92 MG/DL (0.60-1.10); GLUCOSE 103 MG/DL (70-104); POTASSIUM 3.9 MMOL/L (3.5-5.1); SODIUM 140 MMOL/L (135-145); TOTAL CARBON DIOXIDE 24.3 MMOL/L (24-32); TOTAL PROTEIN 5.3 G/DL (6.4-8.2); eGFR 79 ML/MIN
[2021-07-17] MEDS: diltiazem CD 120mg capsule (once-daily) PO SCH ×2 (09:15→20:31)
[2021-07-17] MEDS: CefTRIAXone/D5W-Rocephin 1gm 50 ML IV SCH (09:16)
[2021-07-17 11:00] VITALS: BP 153/65
[2021-07-17] MEDS: HYDROcodone/acetaminophen 5mg/325mg tablet PO PRN (12:48)
[2021-07-17] MEDS ORDERED: guaiFENesin 200 MG/10 ML oral syrup UD cup PO PRN (12:50)
[2021-07-17 15:00] VITALS: BP 115/70
[2021-07-17 18:00] VITALS: BP 130/70
--- NOTE | 2021-07-17 18:23 | NUR ---
Problems reprioritized. Patient report given, questions answered & plan of care reviewed with Lilia MUSA.
[2021-07-18] MEDS ORDERED: diazepam inj 5 MG/ML inj. IV ONE (00:10)
[2021-07-18] MEDS ORDERED: haloperidol lactate 5mg/ml inj IM PRN (00:40)
[2021-07-18] MEDS: normal saline 1000ml 1,000 ML IV SCH ×2 (00:44→22:48)
--- NOTE | 2021-07-18 00:45 | NUR ---
Patient very anxious a call placed to Dr. Christopher with orders for valium .patient was given valium 10 mg IVP in left wrist infusion. Patient fell asleep with 1:1 sitter at bedside .Side rails up x2.
[2021-07-18 02:00] VITALS: BP 125/61
[2021-07-18 06:00] VITALS: BP 122/62
--- NOTE | 2021-07-18 06:43 | NUR ---
Problems reprioritized. Patient report given, questions answered & plan of care reviewed with Cr.
[2021-07-18] MEDS: K and/or MAG REPLACEMENT MC SCH ×2 (08:00→19:18)
[2021-07-18] MEDS: diltiazem CD 120mg capsule (once-daily) PO SCH ×2 (08:25→19:16)
[2021-07-18] MEDS: CefTRIAXone/D5W-Rocephin 1gm 50 ML IV SCH (08:26)
--- NOTE | 2021-07-18 10:33 | NUR ---
Reassessment: Pt has been advanced to Full liquid diet 07/15 w/ mostly 25% intake of meals not meeting needs. TPN has been d/c 07/15 though pt has not been advanced to adequate diet nor has sufficient PO intake to meet needs. Pt continues to be confused though able to feed self now. Recommend Ensure Enlive TID at this time though pt may need supplemental EN to meet nutrient needs if diet cannot be advanced. [facility] 07/16. Will continue to monitor closely. Recommendations: 1. Advance to regular diet as medically indicated; assist with meals per ST 2. Ensure Enlive TID; pending MD verification 3. IF pt with insufficient PO intake or prolonged insufficient diet order, transition to EN for supplemental vs full nutrition given function gut 5. Bowel care per MD 6. Weekly wts Addendum: 07/18/21 at [address] Amended: Links added.
[2021-07-18 11:00] VITALS: BP 148/62
[2021-07-18] MEDS: lactose-reduced food (Ensure Enlive) - 237ml bottle PO SCH ×2 (13:00→18:00)
[2021-07-18] MEDS: LORazepam 1 MG tablet PO PRN ×2 (14:51→22:39)
[2021-07-18 15:00] VITALS: BP 165/74
[2021-07-18 18:00] VITALS: BP 155/85
[2021-07-18] MEDS: HYDROcodone/acetaminophen 10/325mg tab PO PRN (19:12)
[2021-07-18 22:00] VITALS: BP 143/56
[2021-07-19 02:00] VITALS: BP 135/72
[2021-07-19 06:47] LABS: ALANINE AMINOTRANSFERASE 71 U/L (12-78); ALBUMIN 2.2 G/DL (3.4-5.0); ALBUMIN/GLOBULIN RATIO 0.6 (1.1-1.5); ALKALINE PHOSPHATASE 84 IU/L (46-116); ANION GAP 12 (8-16); ASPARTATE AMINO TRANSFERASE 33 U/L (10-37); BILIRUBIN,TOTAL 0.5 MG/DL (0.1-1.0); BLOOD UREA NITROGEN 13 MG/DL (7-18); BUN/CREATININE RATIO 15.3 (5.4-32.0); CALCIUM 8.1 MG/DL (8.5-10.1); CHLORIDE 107 MMOL/L (99-107); CREATININE 0.85 MG/DL (0.60-1.10); GLUCOSE 105 MG/DL (70-104); MAGNESIUM 2.1 MG/DL (1.5-2.4); PHOSPHORUS 2.6 MG/DL (2.3-4.5); POTASSIUM 3.8 MMOL/L (3.5-5.1); PREALBUMIN 11.4 MG/DL (19-36); SODIUM 142 MMOL/L (135-145); TOTAL CARBON DIOXIDE 22.8 MMOL/L (24-32); TOTAL PROTEIN 5.9 G/DL (6.4-8.2); TRIGLYCERIDES 71 MG/DL (20-135); eGFR 86 ML/MIN
[2021-07-19 07:00] VITALS: BP 141/64
--- NOTE | 2021-07-19 07:07 | NUR ---
Problems reprioritized. Patient report given, questions answered & plan of care reviewed with Ginette MUSA.
[2021-07-19] MEDS: HYDROcodone/acetaminophen 10/325mg tab PO PRN (07:36)
[2021-07-19] MEDS: diltiazem CD 120mg capsule (once-daily) PO SCH ×2 (07:36→21:44)
[2021-07-19] MEDS: LORazepam 1 MG tablet PO PRN (07:37)
[2021-07-19] MEDS: K and/or MAG REPLACEMENT MC SCH ×2 (08:00→19:34)
[2021-07-19] MEDS: lactose-reduced food (Ensure Enlive) - 237ml bottle PO SCH ×3 (08:00→18:00)
[2021-07-19 09:30] LABS: BASOPHILS # (AUTO) 0.1 X10'3 (0-0.2); BASOPHILS % (AUTO) 1.1 % (0-1); EOSINOPHILS # (AUTO) 0.1 X10'3 (0-0.9); EOSINOPHILS % (AUTO) 1.6 % (0-6); HEMATOCRIT 35.6 % (42.0-52.0); HEMOGLOBIN 11.8 g/dl (14.0-17.9); LYMPHOCYTES # (AUTO) 0.7 X10'3 (1.1-4.8); LYMPHOCYTES % (AUTO) 7.8 % (21-51); MEAN CORPUSCULAR HEMOGLOBIN 26.9 PG (27.0-31.0); MEAN CORPUSCULAR HGB CONC 33.2 g/dL (33.0-36.5); MEAN PLATELET VOLUME 8.9 FL (7.4-10.4); MONOCYTES # (AUTO) 0.8 X10'3 (0-0.9); MONOCYTES % (AUTO) 9.1 % (2-12); NEUTROPHILS # (AUTO) 6.8 X10'3 (1.8-7.7); NEUTROPHILS % (AUTO) 80.4 % (42-75); PLATELET COUNT 319 X10'3 (140-440); RED BLOOD COUNT 4.39 X10'6 (4.70-6.10); RED CELL DISTRIBUTION WIDTH 15.4 % (11.5-14.5); WHITE BLOOD COUNT 8.4 X10'3 (4.5-11.0)
[2021-07-19 11:00] VITALS: BP 116/65
[2021-07-19] MEDS: normal saline 1000ml 1,000 ML IV SCH (12:32)
--- NOTE | 2021-07-19 14:49 | NUR ---
spoke with about placement at [facility] . She stated she would like to speak with the case maker, so I called Torrie. Torrie said she is not going to come and speak with her at this time but she will contact [facility] to check on supposed placement.
[2021-07-19 15:00] VITALS: BP 120/57
[2021-07-19 18:00] VITALS: BP 153/67
--- NOTE | 2021-07-19 18:16 | NUR ---
Problems reprioritized. Patient report given, questions answered & plan of care reviewed with Shefali RN. Patient resting in bed in no acute distress. Sitter and at bedside
[2021-07-19] MEDS: hydrOXYzine 10 MG tablet PO PRN (21:44)
[2021-07-20] MEDS: LORazepam 1 MG tablet PO PRN (00:26)
[2021-07-20] MEDS: normal saline 1000ml 1,000 ML IV SCH ×2 (01:46→14:40)
[2021-07-20 02:00] VITALS: BP 136/78
[2021-07-20] MEDS: hydrOXYzine 10 MG tablet PO PRN (04:30)
--- NOTE | 2021-07-20 05:18 | NUR ---
Patient remains confused throughout the shift. He has moments of pulling at his clothing, shi, G-tube, & ECG wires. He also tries to get out of bed. Medicated with Atarax at 2144 which calmed him for a couple hours and he slept. He became agitated again at 0026. Medicated with Ativan which seem to arouse rather than sedate him. Medicated again at 0430 with Atarax 10mg for agitation. Sitter remains at bedside providing one-on-one care. He provided pm care including shaving pt. Pt was able to take his pills crushed applesauce as well as whole with applesauce. He is also able to drink liquids His Iris called this morning to check on pt. I informed her of the above (pt remains confused, removing his clothing and trying to get out of bed). states, "he is confused because you guys have had him laying in that bed for 2 weeks. He is not eating and I have to do something about it." She then hung up
--- NOTE | 2021-07-20 06:29 | NUR ---
Patient in room PCU 3023. I have received report from Shefali MUSA and had the opportunity to ask questions and assume patient care. Patient resting in bed in no acute distress. Sitter at bedside.
--- NOTE | 2021-07-20 06:37 | NUR ---
Change of shift report given to LENCHO Peng Addendum: 07/20/21 at 0638 by Shefali Hyde RN Amended: Links added.
[2021-07-20 07:00] VITALS: BP 178/82
[2021-07-20 07:11] LABS: BASOPHILS # (AUTO) 0.1 X10'3 (0-0.2); BASOPHILS % (AUTO) 0.8 % (0-1); EOSINOPHILS # (AUTO) 0.1 X10'3 (0-0.9); EOSINOPHILS % (AUTO) 1.1 % (0-6); HEMATOCRIT 35.6 % (42.0-52.0); HEMOGLOBIN 11.8 g/dl (14.0-17.9); LYMPHOCYTES # (AUTO) 0.6 X10'3 (1.1-4.8); LYMPHOCYTES % (AUTO) 6.9 % (21-51); MEAN CORPUSCULAR HEMOGLOBIN 26.9 PG (27.0-31.0); MEAN CORPUSCULAR HGB CONC 33.2 g/dL (33.0-36.5); MEAN PLATELET VOLUME 7.9 FL (7.4-10.4); MONOCYTES # (AUTO) 0.6 X10'3 (0-0.9); MONOCYTES % (AUTO) 6.8 % (2-12); NEUTROPHILS # (AUTO) 7.3 X10'3 (1.8-7.7); NEUTROPHILS % (AUTO) 84.4 % (42-75); PLATELET COUNT 376 X10'3 (140-440); RED BLOOD COUNT 4.39 X10'6 (4.70-6.10); RED CELL DISTRIBUTION WIDTH 15.5 % (11.5-14.5); WHITE BLOOD COUNT 8.7 X10'3 (4.5-11.0)
[2021-07-20 07:37] LABS: ALANINE AMINOTRANSFERASE 54 U/L (12-78); ALBUMIN 2.2 G/DL (3.4-5.0); ALBUMIN/GLOBULIN RATIO 0.6 (1.1-1.5); ALKALINE PHOSPHATASE 79 IU/L (46-116); ANION GAP 12 (8-16); ASPARTATE AMINO TRANSFERASE 29 U/L (10-37); BILIRUBIN,TOTAL 0.5 MG/DL (0.1-1.0); BLOOD UREA NITROGEN 10 MG/DL (7-18); BUN/CREATININE RATIO 11.4 (5.4-32.0); CALCIUM 8.3 MG/DL (8.5-10.1); CHLORIDE 109 MMOL/L (99-107); CREATININE 0.88 MG/DL (0.60-1.10); GLUCOSE 109 MG/DL (70-104); POTASSIUM 4.4 MMOL/L (3.5-5.1); SODIUM 143 MMOL/L (135-145); TOTAL CARBON DIOXIDE 21.6 MMOL/L (24-32); TOTAL PROTEIN 5.9 G/DL (6.4-8.2); eGFR 83 ML/MIN
[2021-07-20] MEDS: K and/or MAG REPLACEMENT MC SCH ×2 (08:00→20:00)
[2021-07-20] MEDS: lactose-reduced food (Ensure Enlive) - 237ml bottle PO SCH ×4 (08:50→19:00)
[2021-07-20] MEDS: diltiazem CD 120mg capsule (once-daily) PO SCH ×3 (08:50→20:57)
--- NOTE | 2021-07-20 08:53 | NUR ---
patient not awake enough to follow directions unsafe for PO meds at this time. will try to give again later. @ cardizem pills pulled from omni were wasted in pharm waste. will wait till patient more awake and try again later.
--- NOTE | 2021-07-20 10:59 | NUR ---
Reassessment: Pt has been advanced to MM5 diet per HAND SEWER 07/19 though continues w/ poor PO intake, mostly 25% of meals and 16% x 3 ONS not meeting needs. Per RN, pt gets very agitated and requires sedation, pt very lethargic at times and unsafe for PO meds. Pt confused A&O x 1 per physical assessment and requires feeder. At this time pt can benefit from supplemental EN to meet nutritional needs, d/w RN. Given inadequate intake for 5 days and severe muscle weakness, pt meets minimum criteria for malnutrition, MD notified LBM 07/17. Will continue to monitor Recommendations: 1. Continue MM5 diet as tolerated per HAND SEWER 2. Ensure Enlive TID 3. EN for supplemental vs full nutrition given poor PO and mentation 5. Bowel care per MD 6. Weekly wts Addendum: 07/20/21 at [address] Amended: Links added.
[2021-07-20 11:00] VITALS: BP 169/75
[2021-07-20 11:05] LABS: PLATELET ESTIMATE NORMAL; TOTAL CELLS COUNTED 100
[2021-07-20] MEDS ORDERED: hydrOXYzine 10 MG tablet PO PRN (11:55)
--- NOTE | 2021-07-20 14:51 | NUR ---
TPN consult: TC to RN and raymond CERDA regarding current recommendation for EN to meet nutrient needs as pt w/ functional gut and TPN previously d/c. Awaiting call back. Addendum: 07/20/21 at [address] Amended: Links added.
--- NOTE | 2021-07-20 14:53 | NUR ---
Page Sent promotional table spacer PAGER ID: [phone] MESSAGE: [id number]. Outsole Beveler would like to use tube feedings for nutrition instead of TPN. Do I need to ask Dr. Painter if its ok to use gtube for tube feed or can I just order the diet consult for tube feeding? Ginette [phone]
--- NOTE | 2021-07-20 15:05 | NUR ---
spoke with Dr. Vicente on the phone it is ok to use gtube for tube feedings and to order tube feed diet consult. Lithographic Press Operator Vinicio notified . I will change order to reflect change to tube feed consult instead of TPN consult.
--- NOTE | 2021-07-20 15:11 | NUR ---
TF consult: RN states that says okay to use Gtube, see recs below for TF Recommendations: 1. Continue MM5 diet as tolerated per ANIME DESIGNER 2. Ensure Enlive TID 3. Continuous TF per MD using Jevity 1.2 at 80ml/hr goal to provide 1920ml volume, 2304kcals, 107g protein, 1549ml free water 4. Additional 125ml water flush Q4H 5. PALB Q / 6. Daily wts 7. Bowel care per MD Addendum: 07/20/21 at [address] Amended: Links added.
--- NOTE | 2021-07-20 16:02 | NUR ---
Patient refused 1500 vitals stating " get the hell away from me and leave me alone". at bedside and does not want us to use ativan for irritation.
--- NOTE | 2021-07-20 17:47 | NUR ---
tube feed not sent up with dinner - I faxed down to dietary to send up jevity 1.2 so tube feed can be initiated
[2021-07-20 18:00] VITALS: BP 157/72
--- NOTE | 2021-07-20 18:19 | NUR ---
Problems reprioritized. Patient report given, questions answered & plan of care reviewed with Shefali RN. Patient resting in bed in no acute distress. at bedside. Sitter present.
--- NOTE | 2021-07-20 18:40 | NUR ---
I received change of shift report that pt to start continuous tube feeding at 80ml/hr. Pt is very confused at night-time, tries to get out of bed, and c/o discomfort when the head of the bed is elevated at night time. This puts him at risk for aspiration. He also has been tolerating po liquids and solids with me (needs encouragement). I contacted Dr. Jorge to see if pt is a candidate for bolus feedings vs continuous. Per Dr. Jorge, may hold the continuous feeding at night time if pt unable to keep HOB elevated and resume in the daytime if dietitian determines he needs continuous feeding. May consult with dietitian to see if he needs bolus vs continuous tube feedings.
[2021-07-20] MEDS: mirtazapine 15mg tablet PO SCH (20:57)
[2021-07-20 22:00] VITALS: BP 164/72
[2021-07-21] MEDS: normal saline 1000ml 1,000 ML IV SCH ×2 (04:30→17:25)
--- NOTE | 2021-07-21 05:31 | NUR ---
Pt refused his 0200 vitals. He also was combative when I tried to flush his G-tube at 0500
--- NOTE | 2021-07-21 06:37 | NUR ---
Change of shift report given to LENCHO Prater Addendum: 07/21/21 at 0639 by Shefali Hyde RN Amended: Links added.
--- NOTE | 2021-07-21 06:46 | NUR ---
Patient in room PCU 3023. I have received report from AXEL MUSA and had the opportunity to ask questions and assume patient care.
--- NOTE | 2021-07-21 06:51 | NUR ---
WHEN I RECEIVED PT NO ONE HAD BEEN GIVING HIM TUBE FEEDINGS OR CHECKING RESIDUAL SUPPOSEDLY DUE TO HIS LACK OF BEING ABLE TO KEEP HEAD AT 30 DEGREES DURING FEEDINGS TO PREVENT ASPIRATION, THESE ORDERS HAVE BEEN IN SINCE NIGHT 07/20/21. I WILL ASSESS AND THEN FOLLOW UP WITH DIETARY AND DOCTOR TO SEE HOW TO PROCEED.
[2021-07-21 07:00] VITALS: BP 162/81
[2021-07-21] MEDS: K and/or MAG REPLACEMENT MC SCH ×2 (08:00→19:33)
[2021-07-21] MEDS: diltiazem CD 120mg capsule (once-daily) PO SCH ×2 (09:16→19:33)
--- NOTE | 2021-07-21 10:31 | NUR ---
PER DR BIRMINGHAM, PT CAN HOLD ON TUBE FEEDINGS AND RESIDUAL CHECKS. THE PT HAS BEEN EATING OVER 50% OF FOOD FOR DINNER 07/20 AND BREAKFAST 07/21. SO PT DOES NOT CURRENTLY NEED GTUBE FEEDINGS AT THIS TIME. WILL CONTINUE TO MONITOR FOOD INTAKE TO REASSESS NEED FOR TUBE FEEDINGS PER DR BIRMINGHAM.
[2021-07-21 11:00] VITALS: BP 142/64
--- NOTE | 2021-07-21 12:02 | NUR ---
TF consult re: "please re-eval if he can have bolus feedings vs continuous feeding". Per EMR pt was never started on TF. 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 Noted PO intake has improved to 25-50% PO intake of dinner with 100% PO intake of ONS and 75% PO intake of breakfast this morning. Pending documentation of ONS PO intake for today. Per RN patient's SO is assisting with meals which is likely contributing to improved PO intake. D/w RN that TF may not be indicated IF PO intake of meals/ONS continues to improve, though if PO intake declines again pt would benefit from supplemental nutrition given prolonged insufficient nutrient intake. Per RN MD already okayed holding off on TF at this time pending further trends in PO intake. D/w RN IF pt to receive TF, continuous would be more appropriate d/t higher volume needed for bolus feedings resulting in higher risk for aspiration. Noted pt with a low Ariel of 12. 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 Recommend Faustino shake BIDLD to assist with wound healing, to be sent pending physician approval in EMR. Additional ONS recommendation was d/w RN who agreed with nutrition intervention. Will continue to follow closely. Recommendations: 1. Continue MM5 diet per ST recs 2. Ensure Enlive TIDWM; Faustino shake BIDLD to assist with wound healing, pending physician approval in EMR 3. IF PO intake declines, continuous TF via G-tube using Jevity 1.2 with 80 ml/hr goal to provide 1920 ml volume/day, 2304 kcal, 107 g protein, and 1549 ml free water 4. IF TF, additional 125 ml water flush Q4H; monitor need to adjust 5. IF TF, PALB q Monday/ 6. IF TF, daily scaled weights 7. Bowel care per MD Addendum: 01/05/22 at [address] Amended: Links added.
[2021-07-21] MEDS: lactose-reduced food (Ensure Enlive) - 237ml bottle PO SCH ×2 (13:11→18:00)
[2021-07-21 13:47] LABS: BASOPHILS # (AUTO) 0.1 X10'3 (0-0.2); BASOPHILS % (AUTO) 0.6 % (0-1); EOSINOPHILS # (AUTO) 0.1 X10'3 (0-0.9); EOSINOPHILS % (AUTO) 0.7 % (0-6); HEMOGLOBIN 11.9 g/dl (14.0-17.9); LYMPHOCYTES # (AUTO) 0.6 X10'3 (1.1-4.8); LYMPHOCYTES % (AUTO) 5.8 % (21-51); MEAN CORPUSCULAR HEMOGLOBIN 26.9 PG (27.0-31.0); MEAN CORPUSCULAR VOLUME 81.7 FL (78-98); MONOCYTES # (AUTO) 0.6 X10'3 (0-0.9); MONOCYTES % (AUTO) 6.8 % (2-12); NEUTROPHILS # (AUTO) 8.2 X10'3 (1.8-7.7); NEUTROPHILS % (AUTO) 86.1 % (42-75); PLATELET COUNT 422 X10'3 (140-440); RED BLOOD COUNT 4.41 X10'6 (4.70-6.10); RED CELL DISTRIBUTION WIDTH 15.7 % (11.5-14.5); WHITE BLOOD COUNT 9.5 X10'3 (4.5-11.0)
--- NOTE | 2021-07-21 14:05 | NUR ---
Page Sent PAGER ID: [phone] MESSAGE: [phone] KITA, THERE HAS BEEN A CHANGE IN THE PTS CONDITION. CAN YOU PLEASE CALL ME GERMAN. HE HAS BEEN HARD TO AROUSE BUT VITALS AND RTHYM ARE STABLE. NOT SURE IF YOU WOULD LIKE TO COME TAKE A LOOK AT HIM. LANI [phone]
[2021-07-21 14:12] LABS: ALANINE AMINOTRANSFERASE 47 U/L (12-78); ALBUMIN 2.1 G/DL (3.4-5.0); ALBUMIN/GLOBULIN RATIO 0.6 (1.1-1.5); ALKALINE PHOSPHATASE 79 IU/L (46-116); ANION GAP 7 (8-16); ASPARTATE AMINO TRANSFERASE 32 U/L (10-37); BILIRUBIN,TOTAL 0.4 MG/DL (0.1-1.0); BLOOD UREA NITROGEN 12 MG/DL (7-18); BUN/CREATININE RATIO 12.1 (5.4-32.0); CALCIUM 8.3 MG/DL (8.5-10.1); CHLORIDE 113 MMOL/L (99-107); CREATININE 0.99 MG/DL (0.60-1.10); GLUCOSE 129 MG/DL (70-104); POTASSIUM 4.3 MMOL/L (3.5-5.1); SODIUM 146 MMOL/L (135-145); TOTAL CARBON DIOXIDE 26.3 MMOL/L (24-32); TOTAL PROTEIN 5.8 G/DL (6.4-8.2); eGFR 72 ML/MIN
[2021-07-21 15:00] VITALS: BP 125/58
[2021-07-21 15:30] LABS: ALANINE AMINOTRANSFERASE 50 U/L (12-78); ALBUMIN 2.2 G/DL (3.4-5.0); ALBUMIN/GLOBULIN RATIO 0.6 (1.1-1.5); ALKALINE PHOSPHATASE 81 IU/L (46-116); ANION GAP 10 (8-16); ASPARTATE AMINO TRANSFERASE 32 U/L (10-37); BILIRUBIN,TOTAL 0.5 MG/DL (0.1-1.0); BLOOD UREA NITROGEN 13 MG/DL (7-18); BUN/CREATININE RATIO 13.8 (5.4-32.0); CALCIUM 8.3 MG/DL (8.5-10.1); CHLORIDE 110 MMOL/L (99-107); CREATININE 0.94 MG/DL (0.60-1.10); GLUCOSE 119 MG/DL (70-104); POTASSIUM 3.9 MMOL/L (3.5-5.1); SODIUM 142 MMOL/L (135-145); TOTAL CARBON DIOXIDE 21.8 MMOL/L (24-32); eGFR 77 ML/MIN
[2021-07-21] MEDS: acetaminophen 325mg tablet PO PRN (17:51)
[2021-07-21 18:00] VITALS: BP 152/56
--- NOTE | 2021-07-21 18:41 | NUR ---
Patient in room PCU 3023. I have received report from Moi MUSA and had the opportunity to ask questions and assume patient care.
--- NOTE | 2021-07-21 18:41 | NUR ---
Problems reprioritized. Patient report given, questions answered & plan of care reviewed with YESSY MUSA.
[2021-07-21] MEDS: mirtazapine 15mg tablet PO SCH (19:33)
[2021-07-21 22:00] VITALS: BP 172/82
[2021-07-22 02:00] VITALS: BP 160/70
[2021-07-22] MEDS: normal saline 1000ml 1,000 ML IV SCH ×2 (04:52→19:05)
[2021-07-22 06:00] VITALS: BP 145/67
--- NOTE | 2021-07-22 06:43 | NUR ---
Problems reprioritized. Patient report given, questions answered & plan of care reviewed with Cr MUSA.
[2021-07-22 06:49] LABS: BASOPHILS % (AUTO) 0.5 % (0-1); EOSINOPHILS # (AUTO) 0.1 X10'3 (0-0.9); EOSINOPHILS % (AUTO) 0.8 % (0-6); HEMATOCRIT 34.4 % (42.0-52.0); HEMOGLOBIN 11.2 g/dl (14.0-17.9); LYMPHOCYTES # (AUTO) 0.6 X10'3 (1.1-4.8); LYMPHOCYTES % (AUTO) 7.7 % (21-51); MEAN CORPUSCULAR HEMOGLOBIN 26.7 PG (27.0-31.0); MEAN CORPUSCULAR HGB CONC 32.7 g/dL (33.0-36.5); MEAN CORPUSCULAR VOLUME 81.7 FL (78-98); MEAN PLATELET VOLUME 7.9 FL (7.4-10.4); MONOCYTES # (AUTO) 0.7 X10'3 (0-0.9); MONOCYTES % (AUTO) 9.3 % (2-12); NEUTROPHILS # (AUTO) 6.4 X10'3 (1.8-7.7); NEUTROPHILS % (AUTO) 81.7 % (42-75); PLATELET COUNT 387 X10'3 (140-440); RED BLOOD COUNT 4.21 X10'6 (4.70-6.10); RED CELL DISTRIBUTION WIDTH 15.4 % (11.5-14.5); WHITE BLOOD COUNT 7.8 X10'3 (4.5-11.0)
[2021-07-22 07:23] LABS: ALANINE AMINOTRANSFERASE 47 U/L (12-78); ALBUMIN/GLOBULIN RATIO 0.6 (1.1-1.5); ALKALINE PHOSPHATASE 77 IU/L (46-116); ANION GAP 8 (8-16); ASPARTATE AMINO TRANSFERASE 37 U/L (10-37); BILIRUBIN,TOTAL 0.4 MG/DL (0.1-1.0); BLOOD UREA NITROGEN 12 MG/DL (7-18); CALCIUM 8.1 MG/DL (8.5-10.1); CHLORIDE 113 MMOL/L (99-107); CREATININE 0.92 MG/DL (0.60-1.10); GLUCOSE 108 MG/DL (70-104); MAGNESIUM 2.2 MG/DL (1.5-2.4); PHOSPHORUS 2.6 MG/DL (2.3-4.5); POTASSIUM 3.9 MMOL/L (3.5-5.1); PREALBUMIN 13.2 MG/DL (19-36); SODIUM 145 MMOL/L (135-145); TOTAL CARBON DIOXIDE 24.5 MMOL/L (24-32); TOTAL PROTEIN 5.3 G/DL (6.4-8.2); TRIGLYCERIDES 53 MG/DL (20-135); eGFR 79 ML/MIN
[2021-07-22] MEDS: K and/or MAG REPLACEMENT MC SCH ×2 (08:00→19:07)
[2021-07-22] MEDS: diltiazem CD 120mg capsule (once-daily) PO SCH ×2 (08:50→19:08)
[2021-07-22] MEDS: lactose-reduced food (Ensure Enlive) - 237ml bottle PO SCH ×3 (08:51→18:56)
[2021-07-22 11:00] VITALS: BP 124/51
--- NOTE | 2021-07-22 13:47 | NUR ---
WOUND INFECTION EDUCATION PROVIDED BY WOUND CARE 1. Patient instructed to call their primary doctor, or go the ED immediately if any of the following symptoms occur: * Increased pain in wound * Increase in drainage from the wound * Redness in the skin surrounding the wound * Warmth in the skin surrounding the wound * Bleeding from the wound * Temperature of 101 or greater 2. If any of these occur while in the hospital tell a nurse immediately. PRESSURE ULCER EDUCATION: DEFINITION: A pressure ulcer is an area of skin that breaks down when you stay in one position too long. The constant pressure against the skin reduces the blood flow to that area and the affected tissue dies. CAUSES: "Being bedridden or in a wheelchair "Fragile skin "Having a chronic condition, such as diabetes or vascular disease "Inability to move certain parts of your body without assistance "Older age "Incontinence of urine or stool SYMPTOMS: "A reddened area that DOES NOT turn white when pressed on - this can be the beginning of a pressure ulcer "A blister, deep sore or a crater - these can be advanced pressure ulcers FIRST AID: "Relieve the pressure on this area "Keep the area clean and dry "Call your primary doctor if you see any of the above symptoms "DO NOT massage the area "DO NOT use a donut shaped or ring shaped pillow- these actually interfere with the blood flow and cause complications PREVENTION: "Check for pressure ulcers everyday "Change position at least every two hours to relieve pressure "Use items that help relieve pressure- pillows, sheepskin, foam padding, and powders. "Keep skin clean and dry "Eat healthy well balanced meals "Exercise daily IF YOU SEE ANY OF THESE SYMPTOMS WHILE IN THE HOSPITAL - TELL YOUR NURSE IMMEDIATELY. IF YOU SEE ANY OF THESE SYMPTOMS WHILE AT HOME OR HAVE ANY QUESTIONS OR CONCERNS ABOUT PRESSURE ULCERS - CALL YOUR PRIMARY DOCTOR IMMEDIATELY. Addendum: 07/22/21 at 1348 by Rashida Aparicio RN Amended: Links added.
[2021-07-22 15:00] VITALS: BP 127/55
[2021-07-22 18:00] VITALS: BP 110/52
--- NOTE | 2021-07-22 18:20 | NUR ---
Patient in room PCU 3023. I have received report from Dolores MUSA and had the opportunity to ask questions and assume patient care.
[2021-07-22] MEDS: mirtazapine 15mg tablet PO SCH (19:08)
[2021-07-22 22:00] VITALS: BP 142/72
[2021-07-22] MEDS: acetaminophen 325mg tablet PO PRN (22:31)
[2021-07-23 02:00] VITALS: BP 148/61
[2021-07-23 06:00] VITALS: BP 141/66
--- NOTE | 2021-07-23 06:08 | NUR ---
Problems reprioritized. Patient report given, questions answered & plan of care reviewed with Kiera MUSA.
--- NOTE | 2021-07-23 06:15 | NUR ---
Patient in room PCU 3023. I have received report from Kathy MUSA and had the opportunity to ask questions and assume patient care.
[2021-07-23 07:07] LABS: BASOPHILS % (AUTO) 0.5 % (0-1); EOSINOPHILS # (AUTO) 0.1 X10'3 (0-0.9); EOSINOPHILS % (AUTO) 0.8 % (0-6); LYMPHOCYTES # (AUTO) 0.9 X10'3 (1.1-4.8); LYMPHOCYTES % (AUTO) 12.7 % (21-51); MEAN CORPUSCULAR HEMOGLOBIN 26.9 PG (27.0-31.0); MEAN CORPUSCULAR HGB CONC 33.3 g/dL (33.0-36.5); MEAN CORPUSCULAR VOLUME 80.9 FL (78-98); MEAN PLATELET VOLUME 8.1 FL (7.4-10.4); MONOCYTES # (AUTO) 0.8 X10'3 (0-0.9); MONOCYTES % (AUTO) 11.1 % (2-12); NEUTROPHILS # (AUTO) 5.1 X10'3 (1.8-7.7); NEUTROPHILS % (AUTO) 74.9 % (42-75); PLATELET COUNT 394 X10'3 (140-440); RED BLOOD COUNT 4.08 X10'6 (4.70-6.10); RED CELL DISTRIBUTION WIDTH 15.9 % (11.5-14.5); WHITE BLOOD COUNT 6.8 X10'3 (4.5-11.0)
[2021-07-23 07:36] LABS: ALANINE AMINOTRANSFERASE 47 U/L (12-78); ALBUMIN 2.1 G/DL (3.4-5.0); ALBUMIN/GLOBULIN RATIO 0.6 (1.1-1.5); ALKALINE PHOSPHATASE 70 IU/L (46-116); ANION GAP 8 (8-16); ASPARTATE AMINO TRANSFERASE 37 U/L (10-37); BILIRUBIN,TOTAL 0.4 MG/DL (0.1-1.0); BLOOD UREA NITROGEN 18 MG/DL (7-18); BUN/CREATININE RATIO 18.9 (5.4-32.0); CALCIUM 8.4 MG/DL (8.5-10.1); CHLORIDE 113 MMOL/L (99-107); CREATININE 0.95 MG/DL (0.60-1.10); GLUCOSE 108 MG/DL (70-104); POTASSIUM 3.8 MMOL/L (3.5-5.1); SODIUM 146 MMOL/L (135-145); TOTAL CARBON DIOXIDE 24.9 MMOL/L (24-32); TOTAL PROTEIN 5.7 G/DL (6.4-8.2); eGFR 76 ML/MIN
[2021-07-23] MEDS: lactose-reduced food (Ensure Enlive) - 237ml bottle PO SCH (08:00)
[2021-07-23] MEDS: K and/or MAG REPLACEMENT MC SCH (08:00)
[2021-07-23] MEDS: diltiazem CD 120mg capsule (once-daily) PO SCH (09:09)
[2021-07-23] MEDS: normal saline 1000ml 1,000 ML IV SCH (09:11)
[2021-07-23] MEDS ORDERED: CARCD120C PO (10:08)
[2021-07-23] MEDS ORDERED: CARI-75 PO (10:08)
[2021-07-23 11:00] VITALS: BP 150/66
--- NOTE | 2021-07-23 14:10 | NUR ---
Paged Dr. Salamanca regarding clarification of diltiazem dose. PAGER ID: [phone] MESSAGE: [phone], Kamron Morejon. I am needing clarification on Diltiazem dose, pharmacy is asking to clarify before filling prescription. Kiera U [id number].
--- NOTE | 2021-07-23 15:38 | NUR ---
Patient is stable for discharge per Dr. Salamanca. All discharge instructions reviewed with patient and spouse and all questions answered. New prescriptions called into [facility] on [facility]. PICC discontinued, cannula intact. Telemetry discontinued. Belongings collected and sent with patients . Patient taken via gurney by Delores Cargo.
== END 2021-07-23 14:15 | disposition home health service (06) | DRG 326 ==
LOC: ER 04:18 → ED HOLD 08:07 → SUR 3N 10:50 → PCU 3S 07-11 14:29
PROVIDERS: ADMIT Internal Medicine; ATTEND Internal Medicine
PROC: 0D9680Z Drainage of Stomach with Drainage Device, Via Natural or Artificial Opening Endoscopic (ICD-10-PCS; 2021-07-07)
PROC: 0DS60ZZ Reposition Stomach, Open Approach (ICD-10-PCS; 2021-07-12)
PROC: 3E0T3BZ Introduction of Anesthetic Agent into Peripheral Nerves and Plexi, Percutaneous Approach (ICD-10-PCS; 2021-07-12)
PROC: 0DH60UZ Insertion of Feeding Device into Stomach, Open Approach (ICD-10-PCS; principal; 2021-07-12 08:32)
PROC: 02HV33Z Insertion of Infusion Device into Superior Vena Cava, Percutaneous Approach (ICD-10-PCS; 2021-07-13)
PROC: 3E0436Z Introduction of Nutritional Substance into Central Vein, Percutaneous Approach (ICD-10-PCS; 2021-07-13)
DX: K56.2 Volvulus (principal); J18.9 Pneumonia, unspecified organism; E43 Unspecified severe protein-calorie malnutrition; K44.0 Diaphragmatic hernia with obstruction, without gangrene; G93.40 Encephalopathy, unspecified; N17.9 Acute kidney failure, unspecified; K31.89 Other diseases of stomach and duodenum; E87.6 Hypokalemia; N18.9 Chronic kidney disease, unspecified; Z20.822 Contact with and (suspected) exposure to COVID-19; K29.80 Duodenitis without bleeding; R74.01 Elevation of levels of liver transaminase levels; I48.0 Paroxysmal atrial fibrillation; I12.9 Hypertensive chronic kidney disease with stage 1 through stage 4 chronic kidney disease, or unspecified chronic kidney disease; F41.9 Anxiety disorder, unspecified; K20.90 Esophagitis, unspecified without bleeding; I25.10 Atherosclerotic heart disease of native coronary artery without angina pectoris; N40.0 Benign prostatic hyperplasia without lower urinary tract symptoms; R09.02 Hypoxemia; Z87.891 Personal history of nicotine dependence; Z91.81 History of falling; Z68.34 Body mass index [BMI] 34.0-34.9, adult
CPT/HCPCS: 36415; 36573; 43235; 70450; 71045; 74176; 74178; 80048; 80053; 81001; 82140; 82948; 82977; 83036; 83605; 83690; 83735; 83880; 84100; 84134; 84145; 84439; 84443; 84478; 84484; 85007; 85025; 85610; 86885; 86900; 86901; 87040; 87088; 87635; 92508; 92616; 93005; 93306; 97110; 97116; 97161; 97530; 97535; 99152; 99153; 99291; A4215; A4618; A4620; A6402; A7000; B4087; C1758; C9290; C9803; G0378; J0131; J0456; J0696; J1100; J1170; J1580; J1630; J1815; J1940; J2060; J2250; J2270; J2405; J2704; J2710; J3010; J3360; J3475; J3480; J3490; J7030; J7040; J7042; J7060; J7120; Q9963

== ENCOUNTER 2023-10-04 14:50 | Emergency (ER) | payer MEDICARE ==
[~2023-10-04] VITALS: Ht 193 cm; Wt 136.4 kg
[~2023-10-04 14:50] MED LIST changes: +AMI200T PO; +APIX5TAB3 PO; -ASCO500C18 PO; -ASPI-1264 PO; +ASPI81TA53 PO; +ATOR10TA PO; +CARCD120C PO; +CARI-75 PO; -CYAN-51 PO; -FINA5TAB11 PO; +FLO0.4C PO; +PANT40TA54 PO
[2023-10-04 15:07] VITALS: BP 133/86; PULSE 95; RESP 18; TEMP 97.8; O2SAT 96
[2023-10-04 15:12] LABS: BASOPHILS % (AUTO) 0.7 % (0-1); EOSINOPHILS # (AUTO) 0.1 X10'3 (0-0.9); HEMATOCRIT 37.8 % (42.0-52.0); HEMOGLOBIN 12.4 g/dl (14.0-17.9); LYMPHOCYTES % (AUTO) 14.7 % (21-51); MEAN CORPUSCULAR HEMOGLOBIN 27.9 PG (27.0-31.0); MEAN CORPUSCULAR HGB CONC 32.7 g/dL (33.0-36.5); MEAN CORPUSCULAR VOLUME 85.2 FL (78-98); MEAN PLATELET VOLUME 7.9 FL (7.4-10.4); MONOCYTES # (AUTO) 0.8 X10'3 (0-0.9); MONOCYTES % (AUTO) 11.3 % (2-12); NEUTROPHILS # (AUTO) 4.8 X10'3 (1.8-7.7); NEUTROPHILS % (AUTO) 71.3 % (42-75); PLATELET COUNT 201 X10'3 (140-440); RED BLOOD COUNT 4.43 X10'6 (4.70-6.10); RED CELL DISTRIBUTION WIDTH 15.7 % (11.5-14.5); WHITE BLOOD COUNT 6.8 X10'3 (4.5-11.0)
[2023-10-04 15:50] LABS: ALANINE AMINOTRANSFERASE 19 U/L (12-78); ALBUMIN 3.2 G/DL (3.4-5.0); ALBUMIN/GLOBULIN RATIO 0.9 (1.1-1.5); ALKALINE PHOSPHATASE 86 IU/L (46-116); ANION GAP 7 (8-16); ASPARTATE AMINO TRANSFERASE 12 U/L (10-37); BILIRUBIN,TOTAL 0.3 MG/DL (0.1-1.0); BLOOD UREA NITROGEN 25 MG/DL (7-18); BUN/CREATININE RATIO 19.1 (10.0-20.0); CALCIUM 8.7 MG/DL (8.5-10.1); CHLORIDE 107 MMOL/L (99-107); CREATININE 1.31 MG/DL (0.60-1.10); GLUCOSE 115 MG/DL (70-104); POTASSIUM 4.6 MMOL/L (3.5-5.1); SODIUM 140 MMOL/L (135-145); TOTAL CARBON DIOXIDE 26.1 MMOL/L (24-32); TOTAL PROTEIN 6.7 G/DL (6.4-8.2); eCRCL 51 ML/MIN; eGFR 52 ML/MIN
[2023-10-04 15:57] LABS: PRO BRAIN NATRIURETIC PEPTIDE 3691 PG/ML (0-450)
[2023-10-09] MEDS ORDERED: CARCD120C PO (09:59)
[2023-10-09] MEDS ORDERED: EMPA10TA PO (09:59)
== END 2023-10-04 21:47 | disposition left against medical advice (07) ==
LOC: ER 14:50
DX: R07.89 Other chest pain (principal); R06.02 Shortness of breath; Z53.21 Procedure and treatment not carried out due to patient leaving prior to being seen by health care provider
CPT/HCPCS: 36415; 80053; 83880; 84484; 85025; 93005; 99281

== ENCOUNTER 2024-04-17 07:18 | Day surgery (SDC) | payer MEDICARE, MEDICAID ==
[2024-04-16 16:29] LABS: BASOPHILS % (AUTO) 0.6 % (0-1); EOSINOPHILS # (AUTO) 0.1 X10'3 (0-0.9); EOSINOPHILS % (AUTO) 1.4 % (0-6); HEMATOCRIT 38.2 % (42.0-52.0); HEMOGLOBIN 12.2 g/dl (14.0-17.9); LYMPHOCYTES # (AUTO) 1.3 X10'3 (1.1-4.8); LYMPHOCYTES % (AUTO) 18.4 % (21-51); MEAN CORPUSCULAR HGB CONC 31.9 g/dL (33.0-36.5); MEAN CORPUSCULAR VOLUME 84.5 FL (78-98); MEAN PLATELET VOLUME 8.5 FL (7.4-10.4); MONOCYTES # (AUTO) 0.6 X10'3 (0-0.9); NEUTROPHILS % (AUTO) 70.6 % (42-75); PLATELET COUNT 199 X10'3 (140-440); RED BLOOD COUNT 4.52 X10'6 (4.70-6.10); RED CELL DISTRIBUTION WIDTH 16.8 % (11.5-14.5); WHITE BLOOD COUNT 7.1 X10'3 (4.5-11.0)
[2024-04-16 16:33] LABS: ALBUMIN 3.2 G/DL (3.4-5.0); ANION GAP 6 (8-16); BLOOD UREA NITROGEN 26 MG/DL (7-18); BUN/CREATININE RATIO 19.7 (10.0-20.0); CALCIUM 8.2 MG/DL (8.5-10.1); CHLORIDE 107 MMOL/L (99-107); CREATININE 1.32 MG/DL (0.60-1.10); GLUCOSE 121 MG/DL (70-104); POTASSIUM 4.4 MMOL/L (3.5-5.1); SODIUM 141 MMOL/L (135-145); TOTAL CARBON DIOXIDE 27.9 MMOL/L (24-32); eGFR 52 ML/MIN
[2024-04-16 16:35] LABS: INR 1.1 INR
[~2024-04-17] VITALS: Ht 193 cm; Wt 128.4 kg
[~2024-04-17 07:18] MED LIST changes: +EMPA10TA PO
[2024-04-17 07:35] VITALS: BP 167/80; PULSE 50; RESP 16; TEMP 97.8; O2SAT 100
[2024-04-17] MEDS ORDERED: FINA5TAB11 PO (07:57)
[2024-04-17] MEDS ORDERED: DULO30CA52 PO (07:57)
[2024-04-17] MEDS ORDERED: MIDO10TA PO (07:57)
[2024-04-17] MEDS ORDERED: AMIO200T27 PO ×2 (08:02→09:48)
[2024-04-17] MEDS ORDERED: APIX2.5T PO (08:02)
[2024-04-17] MEDS ORDERED: DILT120T14 PO (08:02)
[2024-04-17] MEDS ORDERED: CARI250T PO (08:02)
[2024-04-17] MEDS ORDERED: LORazepam 0.5 MG tablet PO ONE (08:05)
[2024-04-17] MEDS ORDERED: morphine 10mg/ml inj. IV ONE (08:05)
[2024-04-17] MEDS ORDERED: normal saline 1000ml 1,000 ML IV SCH (08:05)
[2024-04-17] MEDS ORDERED: MIDAZolam 1mg/ml 10ml vial IV ONE (08:05)
[2024-04-17] MEDS ORDERED: atropine 0.1mg/ml 10ml syringe IV ONE (08:05)
[2024-04-17] MEDS ORDERED: diphenhydrAMINE 25mg capsule PO ONE (08:05)
[2024-04-17] MEDS ORDERED: amiodarone 150mg/dext, iso-os 100 ML IV ONE (08:05)
[2024-04-17] MEDS ORDERED: APIX5TAB3 PO (09:48)
[2024-04-17] MEDS ORDERED: DILT240C94 PO (09:48)
== END 2024-04-17 09:05 | disposition home or self-care (01) ==
LOC: SSTAY O 07:18
PROVIDERS: ATTEND Internal Medicine Cardiovascular Disease
DX: I48.0 Paroxysmal atrial fibrillation (principal); Z53.8 Procedure and treatment not carried out for other reasons; I25.10 Atherosclerotic heart disease of native coronary artery without angina pectoris; I11.0 Hypertensive heart disease with heart failure; I50.32 Chronic diastolic (congestive) heart failure; J44.9 Chronic obstructive pulmonary disease, unspecified; G47.33 Obstructive sleep apnea (adult) (pediatric); E78.5 Hyperlipidemia, unspecified; E66.9 Obesity, unspecified; M19.90 Unspecified osteoarthritis, unspecified site; Z79.01 Long term (current) use of anticoagulants; Z79.899 Other long term (current) drug therapy; Z95.5 Presence of coronary angioplasty implant and graft; Z96.611 Presence of right artificial shoulder joint; Z96.612 Presence of left artificial shoulder joint; Z98.890 Other specified postprocedural states; Z68.34 Body mass index [BMI] 34.0-34.9, adult
CPT/HCPCS: 36415; 80048; 85025; 85610; 93005; J7030; Z7610

== ENCOUNTER 2024-05-16 12:01 | Inpatient (IN) | payer MEDICARE, MEDICAID ==
[~2024-05-16] VITALS: Ht 193 cm; Wt 130.0 kg
[~2024-05-16 12:01] MED LIST changes: -AMI200T PO; +AMIO200T27 PO; +APIX2.5T PO; -ASPI81TA53 PO; -ATOR10TA PO; -CARCD120C PO; -CARI-75 PO; +CARI250T PO; +DILT120T14 PO; +DILT240C94 PO; +DULO30CA52 PO; -EMPA10TA PO; +FINA5TAB11 PO; -FLO0.4C PO; -FURO-150 PO; +MIDO10TA3 PO; -PANT40TA54 PO
[2024-05-16 12:45] LABS: BASOPHILS % (AUTO) 0.3 % (0-1); EOSINOPHILS # (AUTO) 0.1 X10'3 (0-0.9); EOSINOPHILS % (AUTO) 0.8 % (0-6); HEMATOCRIT 37.2 % (42.0-52.0); HEMOGLOBIN 12.2 g/dl (14.0-17.9); LYMPHOCYTES # (AUTO) 0.7 X10'3 (1.1-4.8); LYMPHOCYTES % (AUTO) 7.8 % (21-51); MEAN CORPUSCULAR HEMOGLOBIN 28.2 PG (27.0-31.0); MEAN CORPUSCULAR HGB CONC 32.8 g/dL (33.0-36.5); MEAN PLATELET VOLUME 8.7 FL (7.4-10.4); MONOCYTES # (AUTO) 0.9 X10'3 (0-0.9); MONOCYTES % (AUTO) 9.7 % (2-12); NEUTROPHILS # (AUTO) 7.2 X10'3 (1.8-7.7); NEUTROPHILS % (AUTO) 81.4 % (42-75); PLATELET COUNT 208 X10'3 (140-440); RED BLOOD COUNT 4.32 X10'6 (4.70-6.10); RED CELL DISTRIBUTION WIDTH 16.3 % (11.5-14.5); WHITE BLOOD COUNT 8.9 X10'3 (4.5-11.0)
[2024-05-16 13:01] LABS: ALANINE AMINOTRANSFERASE 11 U/L (12-78); ALBUMIN 3.2 G/DL (3.4-5.0); ALKALINE PHOSPHATASE 93 IU/L (46-116); ANION GAP 8 (8-16); ASPARTATE AMINO TRANSFERASE 11 U/L (10-37); BILIRUBIN,TOTAL 0.4 MG/DL (0.1-1.0); BLOOD UREA NITROGEN 26 MG/DL (7-18); BUN/CREATININE RATIO 18.1 (10.0-20.0); CALCIUM 8.6 MG/DL (8.5-10.1); CHLORIDE 108 MMOL/L (99-107); CREATININE 1.44 MG/DL (0.60-1.10); GLUCOSE 135 MG/DL (70-104); POTASSIUM 3.7 MMOL/L (3.5-5.1); SODIUM 140 MMOL/L (135-145); TOTAL CARBON DIOXIDE 23.8 MMOL/L (24-32); TOTAL PROTEIN 6.5 G/DL (6.4-8.2); eCRCL 45 ML/MIN; eGFR 47 ML/MIN
[2024-05-16 13:07] LABS: BILIRUBIN,DIRECT 0.1 MG/DL (0-0.3); MAGNESIUM 2.2 MG/DL (1.5-2.4); PRO BRAIN NATRIURETIC PEPTIDE 1776 PG/ML (0-450)
[2024-05-16] MEDS: normal saline 1000ml 1,000 ML IV ONE (13:31)
[2024-05-16 13:40] LABS: BILIRUBIN,URINE NEGATIVE (Neg); CLARITY,URINE CLOUDY (Clear); COLOR,URINE YELLOW (Yellow); GLUCOSE, URINE NEGATIVE (Neg); KETONES,URINE NEGATIVE (Neg); LEUKOCYTE ESTERASE ,URINE NEGATIVE (Neg); NITRITES, URINE NEGATIVE (Neg); OCCULT BLOOD,URINE TRACE-INTACT (Neg); PH,URINE 5.5 (4.8-8.0); PROTEIN,URINE 30 mg/dl (Neg); UROBILINOGEN,URINE 0.2 E.U/dL (0.2-1.0)
[2024-05-16 13:42] LABS: UA COLLECTION TYPE CLN CATCH MIDSTREAM
[2024-05-16 13:47] LABS: CELLULAR CAST 0-4 /LPF (NEGATIVE)
[2024-05-16 13:48] LABS: BACTERIA,URINE FEW /HPF (Neg); RBC,URINE 0-2 /HPF (0-2)
[2024-05-16 13:49] LABS: MUCUS STRANDS MODERATE /LPF (Neg); SQUAMOUS EPITHELIAL CELL,UR FEW /LPF (FEW); WBC CLUMPS,URINE FEW /HPF (NEGATIVE)
[2024-05-16] MEDS: HYDROcodone/acetaminophen 10/325mg tab PO ONE (15:13)
[2024-05-16] MEDS ORDERED: mag hydrox/Alum hydrox/simeth 30ml oral suspension PO PRN (16:05)
[2024-05-16] MEDS ORDERED: acetaminophen 325mg tablet PO PRN (16:05)
[2024-05-16] MEDS ORDERED: magnesium hydroxide 30ml (MOM) UD suspension PO PRN (16:05)
[2024-05-16] MEDS ORDERED: ondansetron/PF 4mg/2ml inj IV PRN (16:05)
[2024-05-16] MEDS ORDERED: morphine 2 MG/ML inj. syringe IV PRN (16:05)
[2024-05-16] MEDS: furosemide 20 MG/2 ML vial IV SCH (20:00)
[2024-05-16] MEDS: docusate sod 100mg capsule PO SCH (20:14)
[2024-05-16] MEDS: hydrALAZINE 20mg/ml inj. IV ONE (21:47)
[2024-05-17] MEDS: morphine 2 MG/ML inj. syringe IV PRN (01:48)
[2024-05-17 08:18] LABS: BASOPHILS % (AUTO) 0.4 % (0-1); EOSINOPHILS # (AUTO) 0.1 X10'3 (0-0.9); EOSINOPHILS % (AUTO) 0.8 % (0-6); HEMATOCRIT 36.6 % (42.0-52.0); LYMPHOCYTES # (AUTO) 1.3 X10'3 (1.1-4.8); MEAN CORPUSCULAR HEMOGLOBIN 28.1 PG (27.0-31.0); MEAN CORPUSCULAR HGB CONC 32.7 g/dL (33.0-36.5); MEAN CORPUSCULAR VOLUME 85.9 FL (78-98); MEAN PLATELET VOLUME 8.4 FL (7.4-10.4); MONOCYTES % (AUTO) 11.2 % (2-12); NEUTROPHILS # (AUTO) 6.3 X10'3 (1.8-7.7); NEUTROPHILS % (AUTO) 72.6 % (42-75); PLATELET COUNT 194 X10'3 (140-440); RED BLOOD COUNT 4.26 X10'6 (4.70-6.10); RED CELL DISTRIBUTION WIDTH 16.6 % (11.5-14.5); WHITE BLOOD COUNT 8.7 X10'3 (4.5-11.0)
[2024-05-17 08:55] LABS: ALBUMIN 3.1 G/DL (3.4-5.0); ANION GAP 6 (8-16); BLOOD UREA NITROGEN 21 MG/DL (7-18); BUN/CREATININE RATIO 16.7 (10.0-20.0); CALCIUM 8.3 MG/DL (8.5-10.1); CHLORIDE 108 MMOL/L (99-107); CREATININE 1.26 MG/DL (0.60-1.10); GLUCOSE 93 MG/DL (70-104); SODIUM 140 MMOL/L (135-145); TOTAL CARBON DIOXIDE 25.7 MMOL/L (24-32); eCRCL 52 ML/MIN; eGFR 54 ML/MIN
[2024-05-17 13:38] VITALS: RESP 16; O2SAT 98
[2024-05-17] MEDS: lisinopril 5mg tablet PO SCH (13:50)
[2024-05-17 18:00] VITALS: BP 174/74; PULSE 53; RESP 18; TEMP 97.6; O2SAT 99
[2024-05-17] MEDS: apixaban 5mg tablet PO SCH (19:58)
[2024-05-17 20:00] VITALS: RESP 18; O2SAT 99
[2024-05-17 22:00] VITALS: BP 152/57; PULSE 47; RESP 17; TEMP 98.4; O2SAT 98
[2024-05-18] MEDS: HYDROcodone/acetaminophen 10/325mg tab PO ONE (00:15)
[2024-05-18 06:00] VITALS: BP 137/118; PULSE 63; RESP 15; TEMP 97.5; O2SAT 99
[2024-05-18 07:23] LABS: BASOPHILS % (AUTO) 0.4 % (0-1); EOSINOPHILS # (AUTO) 0.1 X10'3 (0-0.9); EOSINOPHILS % (AUTO) 1.6 % (0-6); HEMATOCRIT 39.4 % (42.0-52.0); LYMPHOCYTES # (AUTO) 1.6 X10'3 (1.1-4.8); LYMPHOCYTES % (AUTO) 20.2 % (21-51); MEAN CORPUSCULAR HEMOGLOBIN 28.4 PG (27.0-31.0); MEAN PLATELET VOLUME 8.5 FL (7.4-10.4); MONOCYTES # (AUTO) 0.8 X10'3 (0-0.9); MONOCYTES % (AUTO) 10.1 % (2-12); NEUTROPHILS # (AUTO) 5.3 X10'3 (1.8-7.7); NEUTROPHILS % (AUTO) 67.7 % (42-75); PLATELET COUNT 216 X10'3 (140-440); RED BLOOD COUNT 4.58 X10'6 (4.70-6.10); RED CELL DISTRIBUTION WIDTH 15.9 % (11.5-14.5); WHITE BLOOD COUNT 7.8 X10'3 (4.5-11.0)
[2024-05-18 08:23] LABS: ALBUMIN 3.3 G/DL (3.4-5.0); ANION GAP 5 (8-16); BLOOD UREA NITROGEN 19 MG/DL (7-18); BUN/CREATININE RATIO 15.3 (10.0-20.0); CALCIUM 8.4 MG/DL (8.5-10.1); CHLORIDE 106 MMOL/L (99-107); CREATININE 1.24 MG/DL (0.60-1.10); GLUCOSE 87 MG/DL (70-104); POTASSIUM 3.7 MMOL/L (3.5-5.1); SODIUM 138 MMOL/L (135-145); TOTAL CARBON DIOXIDE 26.8 MMOL/L (24-32); eCRCL 53 ML/MIN; eGFR 55 ML/MIN
[2024-05-18] MEDS: finasteride 5mg tablet PO SCH (08:56)
[2024-05-18] MEDS: furosemide 20 MG/2 ML vial IV SCH (08:56)
[2024-05-18] MEDS: duloxetine 30mg CAPSULE.DR PO SCH (08:56)
[2024-05-18 10:00] VITALS: BP 133/67; PULSE 54; RESP 16; TEMP 98.5; O2SAT 98
[2024-05-18] MEDS: acetaminophen 325mg tablet PO PRN (16:36)
[2024-05-18 18:00] VITALS: BP 189/83; PULSE 55; RESP 16; TEMP 97.2; O2SAT 96
[2024-05-18 20:00] VITALS: RESP 16; O2SAT 95
[2024-05-18 22:00] VITALS: BP 157/68; PULSE 46; RESP 16; TEMP 97.5; O2SAT 97
[2024-05-19 08:00] VITALS: RESP 16; O2SAT 95
[2024-05-19 08:17] LABS: ALBUMIN 3.3 G/DL (3.4-5.0); ANION GAP 7 (8-16); BLOOD UREA NITROGEN 20 MG/DL (7-18); BUN/CREATININE RATIO 17.2 (10.0-20.0); CALCIUM 8.4 MG/DL (8.5-10.1); CHLORIDE 104 MMOL/L (99-107); CREATININE 1.16 MG/DL (0.60-1.10); GLUCOSE 98 MG/DL (70-104); SODIUM 137 MMOL/L (135-145); TOTAL CARBON DIOXIDE 26.2 MMOL/L (24-32); eCRCL 56 ML/MIN; eGFR 60 ML/MIN
[2024-05-19 08:20] LABS: POTASSIUM 4.1 MMOL/L (3.5-5.1)
[2024-05-19 09:34] LABS: BASOPHILS % (AUTO) 0.5 % (0-1); EOSINOPHILS % (AUTO) 0.2 % (0-6); HEMATOCRIT 41.7 % (42.0-52.0); HEMOGLOBIN 13.7 g/dl (14.0-17.9); LYMPHOCYTES # (AUTO) 0.3 X10'3 (1.1-4.8); LYMPHOCYTES % (AUTO) 3.7 % (21-51); MEAN CORPUSCULAR HGB CONC 32.8 g/dL (33.0-36.5); MEAN CORPUSCULAR VOLUME 85.5 FL (78-98); MEAN PLATELET VOLUME 8.7 FL (7.4-10.4); MONOCYTES # (AUTO) 0.5 X10'3 (0-0.9); MONOCYTES % (AUTO) 6.1 % (2-12); NEUTROPHILS # (AUTO) 7.9 X10'3 (1.8-7.7); NEUTROPHILS % (AUTO) 89.5 % (42-75); PLATELET COUNT 203 X10'3 (140-440); RED BLOOD COUNT 4.88 X10'6 (4.70-6.10); WHITE BLOOD COUNT 8.8 X10'3 (4.5-11.0)
[2024-05-19 11:00] VITALS: BP 143/108; PULSE 72; RESP 18; TEMP 98.8; O2SAT 97
[2024-05-19] MEDS ORDERED: LORazepam 2 mg/ml vial IV ONE (12:35)
== END 2024-05-19 15:33 | DRG 291 ==
LOC: ER 12:02 → ED HOLD 16:04 → ORTHO 4S 05-17 07:45
PROVIDERS: ADMIT Internal Medicine; ATTEND Internal Medicine
DX: I11.0 Hypertensive heart disease with heart failure (principal); N17.0 Acute kidney failure with tubular necrosis; I50.810 Right heart failure, unspecified; I27.81 Cor pulmonale (chronic); I95.9 Hypotension, unspecified; I48.0 Paroxysmal atrial fibrillation; K21.9 Gastro-esophageal reflux disease without esophagitis; N40.0 Benign prostatic hyperplasia without lower urinary tract symptoms; E78.5 Hyperlipidemia, unspecified; G47.30 Sleep apnea, unspecified; G89.29 Other chronic pain; I25.10 Atherosclerotic heart disease of native coronary artery without angina pectoris; F03.90 Unspecified dementia, unspecified severity, without behavioral disturbance, psychotic disturbance, mood disturbance, and anxiety; Z79.01 Long term (current) use of anticoagulants; Z79.899 Other long term (current) drug therapy
CPT/HCPCS: 36415; 70450; 71045; 80048; 80076; 81001; 83735; 83880; 84484; 85025; 87081; 87088; 93005; 93306; 97110; 97116; 97162; 99285; A6250; A6590; G0378; J0360; J1940; J2270; J7030

== ENCOUNTER 2024-07-12 16:22 | Inpatient (IN) | payer MEDICARE, MEDICAID ==
[~2024-07-12] VITALS: Ht 193 cm; Wt 128.6 kg
[~2024-07-12 16:22] MED LIST changes: -APIX2.5T PO; -CARI250T PO; -DILT120T14 PO; -DILT240C94 PO; -HYDR-4353 PO; -MIDO10TA3 PO
[2024-07-12 17:44] LABS: BILIRUBIN,URINE NEGATIVE (Neg); CLARITY,URINE CLOUDY (Clear); COLOR,URINE YELLOW (Yellow); GLUCOSE, URINE NEGATIVE (Neg); KETONES,URINE TRACE mg/dl (Neg); LEUKOCYTE ESTERASE ,URINE MODERATE (Neg); NITRITES, URINE POSITIVE (Neg); OCCULT BLOOD,URINE LARGE (Neg); PROTEIN,URINE 100 mg/dl (Neg)
[2024-07-12 17:46] LABS: BASOPHILS # (AUTO) 0.1 X10'3 (0-0.2); BASOPHILS % (AUTO) 0.5 % (0-1); EOSINOPHILS % (AUTO) 0 % (0-6); HEMATOCRIT 33.6 % (42.0-52.0); HEMOGLOBIN 11.2 g/dl (14.0-17.9); LYMPHOCYTES # (AUTO) 0.9 X10'3 (1.1-4.8); LYMPHOCYTES % (AUTO) 6.8 % (21-51); MEAN CORPUSCULAR HEMOGLOBIN 28.3 PG (27.0-31.0); MEAN CORPUSCULAR HGB CONC 33.2 g/dL (33.0-36.5); MEAN CORPUSCULAR VOLUME 85.3 FL (78-98); MEAN PLATELET VOLUME 8.2 FL (7.4-10.4); MONOCYTES # (AUTO) 1.1 X10'3 (0-0.9); MONOCYTES % (AUTO) 7.9 % (2-12); NEUTROPHILS # (AUTO) 11.4 X10'3 (1.8-7.7); NEUTROPHILS % (AUTO) 84.8 % (42-75); PLATELET COUNT 328 X10'3 (140-440); RED BLOOD COUNT 3.94 X10'6 (4.70-6.10); WHITE BLOOD COUNT 13.4 X10'3 (4.5-11.0)
[2024-07-12 17:50] LABS: UA COLLECTION TYPE NON-SPECIFIED
[2024-07-12 17:51] LABS: BACTERIA,URINE 2+ /HPF (Neg); MUCUS STRANDS NONE SEEN /LPF (Neg); SQUAMOUS EPITHELIAL CELL,UR NONE SEEN /LPF (FEW); WBC CLUMPS,URINE MANY /HPF (NEGATIVE); WBC,URINE TNTC /HPF (0-4)
[2024-07-12 18:05] LABS: ALANINE AMINOTRANSFERASE 11 U/L (12-78); ALBUMIN 2.4 G/DL (3.4-5.0); ALBUMIN/GLOBULIN RATIO 0.6 (1.1-1.5); ALKALINE PHOSPHATASE 102 IU/L (46-116); ANION GAP 10 (8-16); ASPARTATE AMINO TRANSFERASE 28 U/L (10-37); BILIRUBIN,TOTAL 0.6 MG/DL (0.1-1.0); BLOOD UREA NITROGEN 25 MG/DL (7-18); BUN/CREATININE RATIO 22.1 (10.0-20.0); CALCIUM 8.4 MG/DL (8.5-10.1); CHLORIDE 107 MMOL/L (99-107); CREATININE 1.13 MG/DL (0.60-1.10); GLUCOSE 151 MG/DL (70-104); POTASSIUM 3.6 MMOL/L (3.5-5.1); SODIUM 143 MMOL/L (135-145); TOTAL CARBON DIOXIDE 26.5 MMOL/L (24-32); TOTAL PROTEIN 6.2 G/DL (6.4-8.2); eCRCL 58 ML/MIN; eGFR 62 ML/MIN
[2024-07-12] MEDS: CefTRIAXone/D5W-Rocephin 1gm 50 ML IV ONE (18:08)
[2024-07-12] MEDS ORDERED: normal saline 1000ML IV soln IVB ONE (20:10)
[2024-07-12] MEDS ORDERED: acetaminophen 325mg tablet PO PRN ×2 (20:20)
[2024-07-12] MEDS ORDERED: magnesium sulf-water 2g/50mL 50 ML IV PRN (20:20)
[2024-07-12] MEDS ORDERED: magnesium hydroxide 30ml (MOM) UD suspension PO PRN (20:20)
[2024-07-12] MEDS ORDERED: magnesium Cl slow-release 64mg tablet PO PRN (20:20)
[2024-07-12] MEDS ORDERED: potassium Cl 40MEQ/1/2NS 520ml 520 ML IV PRN (20:20)
[2024-07-12] MEDS ORDERED: ondansetron/PF 4mg/2ml inj IV PRN (20:20)
[2024-07-12] MEDS ORDERED: mag hydrox/Alum hydrox/simeth 30ml oral suspension PO PRN (20:20)
[2024-07-12] MEDS ORDERED: magnesium sulf-water 4G/100mL 100 ML IV PRN (20:20)
[2024-07-12 20:57] LABS: PRO BRAIN NATRIURETIC PEPTIDE 3951 PG/ML (0-450)
[2024-07-12] MEDS: potassium Cl 20 mEq SR tablet PO STA (21:01)
[2024-07-12] MEDS: furosemide 10 MG/1 ML 10ml inj IV ONE (21:02)
[2024-07-12] MEDS: apixaban 5mg tablet PO SCH (21:05)
[2024-07-12] MEDS: finasteride 5mg tablet PO SCH (22:29)
[2024-07-12] MEDS: azithromycin/NS 500mg/250ml 250 ML IV SCH (23:25)
[2024-07-13] VITALS (10 sets, daily range): BP systolic 141–158; BP diastolic 60–77; PULSE 60–74; RESP 16–24; TEMP 97–98.7; O2SAT 92–100
[2024-07-13] MEDS: aspirin 325mg tablet PO ONE (00:20)
[2024-07-13] MEDS: K and/or MAG REPLACEMENT MC SCH (08:00)
[2024-07-13 08:48] LABS: BASOPHILS % (AUTO) 0.2 % (0-1); EOSINOPHILS % (AUTO) 0.2 % (0-6); HEMATOCRIT 30.5 % (42.0-52.0); HEMOGLOBIN 10.1 g/dl (14.0-17.9); LYMPHOCYTES # (AUTO) 0.9 X10'3 (1.1-4.8); LYMPHOCYTES % (AUTO) 7.2 % (21-51); MEAN CORPUSCULAR HEMOGLOBIN 27.9 PG (27.0-31.0); MEAN CORPUSCULAR HGB CONC 33.1 g/dL (33.0-36.5); MEAN CORPUSCULAR VOLUME 84.2 FL (78-98); MONOCYTES # (AUTO) 1.1 X10'3 (0-0.9); NEUTROPHILS # (AUTO) 9.8 X10'3 (1.8-7.7); NEUTROPHILS % (AUTO) 83.4 % (42-75); PLATELET COUNT 290 X10'3 (140-440); RED BLOOD COUNT 3.62 X10'6 (4.70-6.10); RED CELL DISTRIBUTION WIDTH 15.9 % (11.5-14.5); WHITE BLOOD COUNT 11.8 X10'3 (4.5-11.0)
[2024-07-13] MEDS: aspirin 81mg, enteric-coated 1 TAB TABLET.DR PO SCH (08:55)
[2024-07-13] MEDS: amiodarone 200mg tablet PO ONE (08:55)
[2024-07-13] MEDS: CefTRIAXone 2gm/D5W 50ml BAG 50 ML IV SCH (08:55)
[2024-07-13] MEDS: furosemide 10 MG/1 ML 10ml inj IV SCH (08:56)
[2024-07-13] MEDS: docusate sod 100mg capsule PO SCH (08:56)
[2024-07-13 09:01] LABS: APTT 33 SECONDS (22-32); INR 1.1 INR; PROTHROMBIN TIME 11.6 SECONDS (9.0-12.0)
[2024-07-13 09:17] LABS: ALANINE AMINOTRANSFERASE 27 U/L (12-78); ALBUMIN 2.1 G/DL (3.4-5.0); ALBUMIN/GLOBULIN RATIO 0.6 (1.1-1.5); ALKALINE PHOSPHATASE 95 IU/L (46-116); ANION GAP 5 (8-16); ASPARTATE AMINO TRANSFERASE 25 U/L (10-37); BILIRUBIN,TOTAL 0.4 MG/DL (0.1-1.0); BLOOD UREA NITROGEN 26 MG/DL (7-18); BUN/CREATININE RATIO 26.3 (10.0-20.0); CHLORIDE 108 MMOL/L (99-107); CHOL/HDL RATIO 3.3 (0.00-4.99); CHOLESTEROL 121 MG/DL (0-200); CREATININE 0.99 MG/DL (0.60-1.10); FREE T4 (FREE THYROXINE) 1.31 NG/DL (0.73-1.40); GLUCOSE 120 MG/DL (70-104); HDL CHOLESTEROL 37 MG/DL (35-60); LDL CHOLESTEROL 69 MG/DL (50-100); MAGNESIUM 2.1 MG/DL (1.5-2.4); PHOSPHORUS 2.7 MG/DL (2.3-4.5); POTASSIUM 3.4 MMOL/L (3.5-5.1); SODIUM 142 MMOL/L (135-145); TOTAL CARBON DIOXIDE 28.6 MMOL/L (24-32); TOTAL PROTEIN 5.5 G/DL (6.4-8.2); TRIGLYCERIDES 56 MG/DL (20-135); eCRCL 66 ML/MIN; eGFR 72 ML/MIN
[2024-07-13 09:25] LABS: HEMOGLOBIN A1C 6.2 % (4.5-6.2)
[2024-07-13] MEDS ORDERED: albuterol 2.5 MG/3 ML nebule NEB PRN (11:50)
[2024-07-13] MEDS: potassium Cl 20 mEq SR tablet PO PRN (21:10)
[2024-07-13] MEDS: HYDROcodone/acetaminophen 5mg/325mg tablet PO PRN (22:59)
[2024-07-14] VITALS (8 sets, daily range): BP systolic 104–174; BP diastolic 47–75; PULSE 59–64; RESP 14–20; TEMP 97–97.8; O2SAT 94–100
[2024-07-14 07:39] LABS: BASOPHILS % (AUTO) 0.4 % (0-1); EOSINOPHILS # (AUTO) 0.1 X10'3 (0-0.9); EOSINOPHILS % (AUTO) 0.8 % (0-6); HEMATOCRIT 32.6 % (42.0-52.0); LYMPHOCYTES # (AUTO) 1.3 X10'3 (1.1-4.8); LYMPHOCYTES % (AUTO) 10.9 % (21-51); MEAN CORPUSCULAR HEMOGLOBIN 28.4 PG (27.0-31.0); MEAN CORPUSCULAR HGB CONC 33.6 g/dL (33.0-36.5); MEAN CORPUSCULAR VOLUME 84.7 FL (78-98); MEAN PLATELET VOLUME 8.3 FL (7.4-10.4); MONOCYTES # (AUTO) 0.9 X10'3 (0-0.9); MONOCYTES % (AUTO) 7.5 % (2-12); NEUTROPHILS # (AUTO) 9.6 X10'3 (1.8-7.7); NEUTROPHILS % (AUTO) 80.4 % (42-75); PLATELET COUNT 328 X10'3 (140-440); RED BLOOD COUNT 3.85 X10'6 (4.70-6.10); RED CELL DISTRIBUTION WIDTH 15.7 % (11.5-14.5)
[2024-07-14 07:52] LABS: APTT 30 SECONDS (22-32); INR 1.1 INR; PROTHROMBIN TIME 11.2 SECONDS (9.0-12.0)
[2024-07-14] MEDS: amiodarone 200mg tablet PO SCH (08:30)
[2024-07-14 08:39] LABS: ALANINE AMINOTRANSFERASE 24 U/L (12-78); ALBUMIN 2.1 G/DL (3.4-5.0); ALBUMIN/GLOBULIN RATIO 0.6 (1.1-1.5); ALKALINE PHOSPHATASE 94 IU/L (46-116); ANION GAP 9 (8-16); ASPARTATE AMINO TRANSFERASE 18 U/L (10-37); BILIRUBIN,TOTAL 0.4 MG/DL (0.1-1.0); BLOOD UREA NITROGEN 22 MG/DL (7-18); BUN/CREATININE RATIO 19.5 (10.0-20.0); CALCIUM 7.7 MG/DL (8.5-10.1); CHLORIDE 104 MMOL/L (99-107); CREATININE 1.13 MG/DL (0.60-1.10); GLUCOSE 94 MG/DL (70-104); PHOSPHORUS 2.9 MG/DL (2.3-4.5); SODIUM 141 MMOL/L (135-145); TOTAL CARBON DIOXIDE 28.2 MMOL/L (24-32); TOTAL PROTEIN 5.8 G/DL (6.4-8.2); eCRCL 58 ML/MIN; eGFR 62 ML/MIN
[2024-07-14] MEDS: potassium Cl 20 mEq SR tablet PO PRN (09:00)
[2024-07-14] MEDS: furosemide 40mg/4ml inj IV SCH (21:19)
[2024-07-15 02:00] VITALS: BP 150/54; PULSE 62; RESP 18; TEMP 98.1; O2SAT 95
[2024-07-15 02:59] VITALS: PULSE 66; RESP 17; O2SAT 97
[2024-07-15 06:00] VITALS: BP 137/72; PULSE 62; RESP 16; TEMP 98.2; O2SAT 95
[2024-07-15 06:29] LABS: BASOPHILS % (AUTO) 0.3 % (0-1); EOSINOPHILS # (AUTO) 0.1 X10'3 (0-0.9); EOSINOPHILS % (AUTO) 0.6 % (0-6); HEMATOCRIT 31.9 % (42.0-52.0); HEMOGLOBIN 10.8 g/dl (14.0-17.9); LYMPHOCYTES # (AUTO) 1.1 X10'3 (1.1-4.8); LYMPHOCYTES % (AUTO) 10.6 % (21-51); MEAN CORPUSCULAR HEMOGLOBIN 28.4 PG (27.0-31.0); MEAN CORPUSCULAR HGB CONC 33.9 g/dL (33.0-36.5); MEAN PLATELET VOLUME 7.8 FL (7.4-10.4); MONOCYTES # (AUTO) 0.9 X10'3 (0-0.9); MONOCYTES % (AUTO) 8.4 % (2-12); NEUTROPHILS # (AUTO) 8.4 X10'3 (1.8-7.7); NEUTROPHILS % (AUTO) 80.1 % (42-75); PLATELET COUNT 328 X10'3 (140-440); RED CELL DISTRIBUTION WIDTH 15.7 % (11.5-14.5); WHITE BLOOD COUNT 10.5 X10'3 (4.5-11.0)
[2024-07-15 07:03] LABS: ALANINE AMINOTRANSFERASE 22 U/L (12-78); ALBUMIN 2.2 G/DL (3.4-5.0); ALBUMIN/GLOBULIN RATIO 0.6 (1.1-1.5); ALKALINE PHOSPHATASE 97 IU/L (46-116); ANION GAP 10 (8-16); ASPARTATE AMINO TRANSFERASE 13 U/L (10-37); BILIRUBIN,TOTAL 0.4 MG/DL (0.1-1.0); BLOOD UREA NITROGEN 21 MG/DL (7-18); CALCIUM 8.3 MG/DL (8.5-10.1); CHLORIDE 102 MMOL/L (99-107); GLUCOSE 106 MG/DL (70-104); MAGNESIUM 1.9 MG/DL (1.5-2.4); PHOSPHORUS 2.5 MG/DL (2.3-4.5); POTASSIUM 3.4 MMOL/L (3.5-5.1); SODIUM 140 MMOL/L (135-145); TOTAL CARBON DIOXIDE 27.6 MMOL/L (24-32); TOTAL PROTEIN 5.8 G/DL (6.4-8.2); eCRCL 65 ML/MIN; eGFR 71 ML/MIN
[2024-07-15 07:12] LABS: APTT 32 SECONDS (22-32)
[2024-07-15 08:00] VITALS: RESP 16; O2SAT 95
[2024-07-15 11:40] LABS: INR 1.1 INR; PROTHROMBIN TIME 11.3 SECONDS (9.0-12.0)
== END 2024-07-15 17:12 | DRG 177 ==
LOC: ER 16:23 → ED HOLD 20:26 → PCU 3S 07-13 00:36
PROVIDERS: ADMIT Internal Medicine Pulmonary Disease; ATTEND Internal Medicine
PROC: BW251ZZ Computerized Tomography (CT Scan) of Chest, Abdomen and Pelvis using Low Osmolar Contrast (ICD-10-PCS; principal; 2024-07-12)
DX: J69.0 Pneumonitis due to inhalation of food and vomit (principal); I50.33 Acute on chronic diastolic (congestive) heart failure; J96.01 Acute respiratory failure with hypoxia; N39.0 Urinary tract infection, site not specified; I31.39 Other pericardial effusion (noninflammatory); R18.8 Other ascites; I11.0 Hypertensive heart disease with heart failure; Z96.611 Presence of right artificial shoulder joint; I48.0 Paroxysmal atrial fibrillation; R53.1 Weakness; E87.6 Hypokalemia; Z20.822 Contact with and (suspected) exposure to COVID-19; G89.29 Other chronic pain; G47.30 Sleep apnea, unspecified; I25.10 Atherosclerotic heart disease of native coronary artery without angina pectoris; K80.20 Calculus of gallbladder without cholecystitis without obstruction; Z95.5 Presence of coronary angioplasty implant and graft
CPT/HCPCS: 36415; 71045; 71250; 74176; 80053; 80061; 81001; 82140; 83036; 83605; 83735; 83880; 84100; 84145; 84439; 84443; 84484; 85025; 85610; 85730; 87040; 87077; 87081; 87088; 87186; 87502; 87503; 87811; 93005; 94760; 96365; 97110; 97161; 97530; 99285; A4615; A6213; A6250; A6446; A6449; A6590; G0378; J0456; J0696; J1940; J7040

== ENCOUNTER 2024-08-09 08:42 | Outpatient (CLI) | payer MEDICARE, MEDICAID ==
[~2024-08-09] VITALS: Ht 193 cm; Wt 118.8 kg
[2024-08-09] MEDS ORDERED: aminophylline 500mg/20ml vial IV ONE (10:15)
[2024-08-09 10:16] VITALS: BP 167/66; PULSE 54; RESP 16; O2SAT 100
[2024-08-09] MEDS: regadenoson 0.4mg/5ml syringe IV ONE (10:48)
[2024-08-09 10:51] VITALS: BP 134/53; PULSE 70; RESP 20; O2SAT 100
[2024-08-09 10:52] VITALS: BP 100/46; PULSE 72; RESP 20; O2SAT 100
[2024-08-09 10:53] VITALS: BP 113/52; PULSE 69; RESP 16; O2SAT 100
[2024-08-09 10:54] VITALS: BP 123/59; PULSE 68; RESP 16; O2SAT 100
[2024-08-09 10:55] VITALS: BP 124/58; PULSE 63; RESP 16; O2SAT 100
== END 2024-08-09 23:59 | disposition home or self-care (01) ==
LOC: NM 08:42
PROVIDERS: ATTEND Internal Medicine Cardiovascular Disease
DX: I11.0 Hypertensive heart disease with heart failure (principal); I50.32 Chronic diastolic (congestive) heart failure; I25.10 Atherosclerotic heart disease of native coronary artery without angina pectoris
CPT/HCPCS: 78452; 93017; A9500; J0280; J2785

== ENCOUNTER 2024-10-20 15:18 | Emergency (ER) | payer MEDICARE, MEDICAID ==
[~2024-10-20] VITALS: Ht 193 cm; Wt 133.0 kg
[2024-10-20 16:11] LABS: BASOPHILS # (AUTO) 0.1 X10'3 (0-0.2); BASOPHILS % (AUTO) 0.6 % (0-1); EOSINOPHILS % (AUTO) 0.1 % (0-6); HEMATOCRIT 26.1 % (42.0-52.0); HEMOGLOBIN 8.4 g/dl (14.0-17.9); LYMPHOCYTES # (AUTO) 1.1 X10'3 (1.1-4.8); LYMPHOCYTES % (AUTO) 6.7 % (21-51); MEAN CORPUSCULAR HEMOGLOBIN 24.7 PG (27.0-31.0); MEAN CORPUSCULAR HGB CONC 32.2 g/dL (33.0-36.5); MEAN CORPUSCULAR VOLUME 76.7 FL (78-98); MEAN PLATELET VOLUME 7.6 FL (7.4-10.4); MONOCYTES # (AUTO) 1.9 X10'3 (0-0.9); MONOCYTES % (AUTO) 11.1 % (2-12); NEUTROPHILS % (AUTO) 81.5 % (42-75); PLATELET COUNT 577 X10'3 (140-440); RED CELL DISTRIBUTION WIDTH 19.1 % (11.5-14.5); WHITE BLOOD COUNT 17.1 X10'3 (4.5-11.0)
[2024-10-20 16:39] LABS: ALBUMIN 2.1 G/DL (3.4-5.0); ANION GAP 7 (8-16); BLOOD UREA NITROGEN 32 MG/DL (7-18); BUN/CREATININE RATIO 16.7 (10.0-20.0); CALCIUM 8.1 MG/DL (8.5-10.1); CHLORIDE 104 MMOL/L (99-107); CREATININE 1.92 MG/DL (0.60-1.10); GLUCOSE 129 MG/DL (70-104); PRO BRAIN NATRIURETIC PEPTIDE 8690 PG/ML (0-450); SODIUM 140 MMOL/L (135-145); TOTAL CARBON DIOXIDE 29.1 MMOL/L (24-32); eCRCL 34 ML/MIN; eGFR 33 ML/MIN
[2024-10-20 17:20] LABS: ANISOCYTOSIS 2+; MICROCYTOSIS 1+; PLATELET ESTIMATE INCREASED
[2024-10-20 17:22] VITALS: TEMP 98.4
[2024-10-20] MEDS: piperacillin/tazo 3.375gm/50ml 50 ML IV ONE (20:54)
[2024-10-20] MEDS: furosemide 10 MG/1 ML 10ml inj IV ONE (20:54)
[2024-10-20 22:09] VITALS: BP 116/76; PULSE 92; RESP 20; O2SAT 95
== END 2024-10-20 22:11 ==
LOC: ER 15:20
DX: J18.9 Pneumonia, unspecified organism (principal); I11.0 Hypertensive heart disease with heart failure; I50.9 Heart failure, unspecified; G47.30 Sleep apnea, unspecified; I25.10 Atherosclerotic heart disease of native coronary artery without angina pectoris; I48.91 Unspecified atrial fibrillation; J96.01 Acute respiratory failure with hypoxia; Z98.890 Other specified postprocedural states; Y95 Nosocomial condition
CPT/HCPCS: 36415; 71045; 80048; 83605; 83880; 85008; 85025; 87040; 93005; 96365; 96375; 99285; J1940; J2543

== ENCOUNTER 2024-10-26 11:37 | Emergency (ER) | payer MEDICARE, MEDICAID ==
[~2024-10-26] VITALS: Ht 193 cm; Wt 120.0 kg
[2024-10-26 12:36] VITALS: TEMP 97.4
[2024-10-26 12:40] LABS: BASOPHILS % (AUTO) 0.4 % (0-1); EOSINOPHILS # (AUTO) 0.2 X10'3 (0-0.9); EOSINOPHILS % (AUTO) 1.5 % (0-6); HEMATOCRIT 30.2 % (42.0-52.0); HEMOGLOBIN 9.5 g/dl (14.0-17.9); LYMPHOCYTES # (AUTO) 1.2 X10'3 (1.1-4.8); LYMPHOCYTES % (AUTO) 10.7 % (21-51); MEAN CORPUSCULAR HEMOGLOBIN 24.2 PG (27.0-31.0); MEAN CORPUSCULAR HGB CONC 31.5 g/dL (33.0-36.5); MEAN CORPUSCULAR VOLUME 76.9 FL (78-98); MEAN PLATELET VOLUME 7.2 FL (7.4-10.4); MONOCYTES # (AUTO) 1.2 X10'3 (0-0.9); MONOCYTES % (AUTO) 10.1 % (2-12); NEUTROPHILS # (AUTO) 8.9 X10'3 (1.8-7.7); NEUTROPHILS % (AUTO) 77.3 % (42-75); PLATELET COUNT 448 X10'3 (140-440); RED BLOOD COUNT 3.93 X10'6 (4.70-6.10); RED CELL DISTRIBUTION WIDTH 19.8 % (11.5-14.5); WHITE BLOOD COUNT 11.5 X10'3 (4.5-11.0)
[2024-10-26 12:41] LABS: BILIRUBIN,URINE SMALL (Neg); CLARITY,URINE CLOUDY (Clear); COLOR,URINE YELLOW (Yellow); GLUCOSE, URINE NEGATIVE (Neg); KETONES,URINE TRACE mg/dl (Neg); LEUKOCYTE ESTERASE ,URINE NEGATIVE (Neg); NITRITES, URINE NEGATIVE (Neg); OCCULT BLOOD,URINE LARGE (Neg); PROTEIN,URINE 100 mg/dl (Neg); UROBILINOGEN,URINE 0.2 E.U/dL (0.2-1.0)
[2024-10-26 12:42] LABS: UA COLLECTION TYPE URINAL
[2024-10-26 12:50] LABS: BACTERIA,URINE FEW /HPF (Neg); MUCUS STRANDS MODERATE /LPF (Neg); RBC,URINE TNTC /HPF (0-2); RENAL CELLS, URINE FEW /HPF; SQUAMOUS EPITHELIAL CELL,UR FEW /LPF (FEW)
[2024-10-26 12:50] LABS: ALBUMIN 1.9 G/DL (3.4-5.0); ANION GAP 3 (8-16); BLOOD UREA NITROGEN 14 MG/DL (7-18); BUN/CREATININE RATIO 14.9 (10.0-20.0); CHLORIDE 106 MMOL/L (99-107); CREATININE 0.94 MG/DL (0.60-1.10); GLUCOSE 97 MG/DL (70-104); POTASSIUM 3.7 MMOL/L (3.5-5.1); SODIUM 141 MMOL/L (135-145); TOTAL CARBON DIOXIDE 32.1 MMOL/L (24-32); eCRCL 69 ML/MIN; eGFR 76 ML/MIN
[2024-10-26 13:00] LABS: ANISOCYTOSIS 2+; HYPOCHROMASIA 1+; MICROCYTOSIS 1+; PLATELET ESTIMATE INCREASED; TOTAL CELLS COUNTED 100
[2024-10-26 13:01] LABS: POLYCHROMASIA FEW
[2024-10-26] MEDS: normal saline 1000ML IV soln IVB ONE (13:08)
[2024-10-26 15:06] LABS: INR 1.3 INR
[2024-10-26 17:14] VITALS: BP 136/98; PULSE 99; RESP 17; O2SAT 96
== END 2024-10-26 17:19 | disposition short-term general hospital (02) ==
LOC: ER 11:37
DX: R53.1 Weakness (principal); I31.39 Other pericardial effusion (noninflammatory); G47.30 Sleep apnea, unspecified; I11.0 Hypertensive heart disease with heart failure; I25.10 Atherosclerotic heart disease of native coronary artery without angina pectoris; I50.9 Heart failure, unspecified; I48.91 Unspecified atrial fibrillation; Z85.118 Personal history of other malignant neoplasm of bronchus and lung
CPT/HCPCS: 36415; 71045; 71250; 74176; 80048; 81001; 83735; 84145; 85007; 85025; 85610; 87088; 93005; 99285; J7030; 96360